=== PATIENT | female | born 1965 | race African-American/Black ===

== ENCOUNTER 2017-10-14 18:48 | Emergency (ER) | payer OTHER ==
[2017-10-14] MEDS ORDERED: SODIUM CHLORIDE 0.9% 1,000 ML IV STA (19:19)
[2017-10-14] MEDS ORDERED: ONDANSETRON 4 MG/2 ML VIAL IVP STA (19:19)
[2017-10-14] MEDS ORDERED: MORPHINE SULFATE 4MG/4ML SYRG IVP STA ×2 (19:20→21:49)
--- NOTE | 2017-10-14 19:26 | ED ---
Abdominal Pain HPI - General Chief Complaint: Abdominal Pain Stated Complaint: Kidney pain Time Seen by Provider: 10/14/17 19:03 Source: patient, RN notes reviewed Mode of arrival: ambulatory Limitations: no limitations - History of Present Illness Initial Comments: This is a 52-year-old female who presents to the emergency department with chief complaint of "kidney pain." Patient states that she had a computed tomography scan done by her primary care provider in August and was diagnosed with kidney stones. She states that she was told they were small enough to pass on their own. She states that she has been having left-sided flank pain for the past one week that has progressively worsened. She describes the pain as intermittent, sharp and shooting with radiation to the left side of her abdomen and left groin. She does state that she noticed some blood in her urine couple of days ago. Denies any dysuria. She states that she has a decrease in appetite, nausea and vomiting and diarrhea. She also admits to associated fevers and chills. - Related Data Home Medications Medication Instructions Recorded Confirmed Hydrochlorothiazide [Hydrodiuril] 12.5 mg PO DAILY 12/19/15 10/14/17 Calcium Carb-Vit D 500Mg-200Un 1 tab PO DAILY 10/14/17 10/14/17 [Oscal 500+D] EPINEPHrine [Epipen 2-Danilo] 0.3 mg IM ONCE PRN 10/14/17 10/14/17 Fluticasone Nasal [place] [Flonase 2 spr EA NOSTRIL DAILY 10/14/17 10/14/17 Nasal [place]] Gabapentin [Neurontin] 400 mg PO TID 10/14/17 10/14/17 Lidocaine 4% Cream [Lmx 4] 1 applic TOPICAL DAILY PRN 10/14/17 10/14/17 Metoprolol Tartrate [Lopressor] 25 mg PO BID 10/14/17 10/14/17 Multivitamins, Thera [Multivitamin 1 tab PO DAILY 10/14/17 10/14/17 (formulary)] Omeprazole [PriLOSEC] 20 mg PO AC-BID 10/14/17 10/14/17 Vitamin D3(Unknown) 1 tab PO DAILY 10/14/17 10/14/17 amLODIPine [Norvasc] 10 mg PO DAILY 10/14/17 10/14/17 Previous Rx's Medication Instructions Recorded HYDROcodone/APAP 5-325MG [[place] 5] 1 each PO Q6HR PRN #12 tab 10/14/17 Ondansetron Odt [Zofran Odt] 4 mg PO Q8HR PRN #10 tab 10/14/17 Tamsulosin [Flomax] 0.4 mg PO DAILY #14 cap 10/14/17 Allergies Allergy/AdvReac Type Severity Reaction Status Date / Time aspirin Allergy Rash/Hives Verified 10/14/17 19:45 fluoxetine Allergy Rash/Hives Verified 10/14/17 19:45 latex Allergy Rash/Hives Verified 10/14/17 19:45 lisinopril Allergy Unknown Verified 10/14/17 19:45 NSAIDS (Non-Steroidal Allergy Bariatric Verified 10/14/17 19:45 Anti-Inflamma Surgery Penicillins Allergy Rash/Hives Verified 10/14/17 19:45 Review of Systems ROS Statement: Those systems with pertinent positive or pertinent negative responses have been documented in the HPI. ROS Other: All systems not noted in ROS Statement are negative. Past Medical History Past Medical History: Hypertension History of Any Multi-Drug Resistant Organisms: None Reported Past Surgical History: Bariatric Surgery, Hernia Repair Additional Past Surgical History / Comment(s): Woody-En-Y Gastric Bypass; Uterine Ablation Past Psychological History: Anxiety Smoking Status: Never smoker Past Alcohol Use History: Occasional Past Drug Use History: None Reported General Exam - General Exam Comments Initial Comments: General: Awake and alert, well-developed. Patient appears to be in significant amount of pain. She appears sweaty and has labored breathing. HEENT: Head atraumatic, normocephalic. Pupils are equal, round and reactive to light. Extraocular movements intact. Oropharynx moist without erythema or exudate. Neck: Supple. Normal ROM. Cardiovascular: Regular rate and rhythm. No murmurs, rubs or gallops. Chest symmetrical. Respiratory: Lungs clear to auscultation bilaterally. No wheezes, rales or rhonchi. Normal respiratory effort with no use of accessory muscles. Abdomen: Soft, non-distended. Tenderness on palpation of left upper and left lower quadrants. Left-sided CVA tenderness. Musculoskeletal: Normal ROM, no tenderness bilateral upper and lower extremities. Skin: [place], warm and dry without rashes or lesions. Neurological: Alert and oriented x3. CN II-XII grossly intact. Speech is fluent and answers are appropriate. No focal neuro deficits. Psychiatric: Normal mood and affect. No overt signs of depression or anxiety noted. Limitations: no limitations Course Vital Signs 10/14/17 10/14/17 10/14/17 18:56 20:02 21:20 Temperature 99.0 F 98.3 F Pulse Rate 83 63 108 H Respiratory 28 H 16 16 Rate Blood Pressure 149/100 156/71 199/91 O2 Sat by Pulse 99 99 Oximetry Medical Decision Making - Medical Decision Making 52-year-old female presents to the emergency department with chief complaint of left flank pain with radiation to the left abdomen. Patient reports a history of kidney stones, recently diagnosed via computed tomography scan in August. CBC and CMP are unremarkable. UA revealed moderate blood and high red blood cells. KUB was obtained and revealed evidence for a left renal calculus. Patient continued to have left flank pain after given morphine. A computed tomography scan was obtained. Computed tomography scan revealed evidence for a 7 mm nonobstructing left renal calculus. Patient's vital signs are stable and she is in no acute distress. She will be discharged home with prescriptions for [place], Flomax and Zofran. Recommended follow-up with primary care provider. Patient is in agreement with plan and voices understanding. All questions were answered. - Lab Data Result diagrams: 10/14/17 19:25 10/14/17 19:25 Lab Results 10/14/17 10/14/17 10/14/17 Range/Units 19:25 19:25 21:39 WBC 4.8 (3.8-10.6) k/uL RBC 5.08 (3.80-5.40) m/uL Hgb 14.8 (11.4-16.0) gm/dL Hct 41.4 (34.0-46.0) % MCV 81.4 (80.0-100.0) fL MCH 29.1 (25.0-35.0) pg MCHC 35.8 (31.0-37.0) g/dL RDW 12.6 (11.5-15.5) % Plt Count 264 (150-450) k/uL Neutrophils % [employer] Neutrophils % (Manual) 25 % Lymphocytes % [employer] Lymphocytes % (Manual) 69 % Monocytes % [employer] Monocytes % (Manual) 4 % Eosinophils % [employer] Eosinophils % (Manual) 1 % Basophils % [employer] Metamyelocytes % 1 % Neutrophils # [employer] Neutrophils # (Manual) 1.20 L (1.3-7.7) k/uL Lymphocytes # [employer] Lymphocytes # (Manual) 3.31 (1.0-4.8) k/uL Monocytes # [employer] Monocytes # (Manual) 0.19 (0-1.0) k/uL Eosinophils # [employer] Eosinophils # (Manual) 0.05 (0-0.7) k/uL Basophils # [employer] Metamyelocytes # (Man) 0.05 H (0) k/uL Nucleated RBCs 0 (0-0) /100 WBC Polychromasia Present Sodium 138 (137-145) mmol/L Potassium 4.2 (3.5-5.1) mmol/L Chloride 104 (98-107) mmol/L Carbon Dioxide 18 L (22-30) mmol/L Anion Gap 16 mmol/L BUN 13 (7-17) mg/dL Creatinine 0.73 (0.52-1.04) mg/dL Est GFR (CKD-EPI)AfAm >90 (>60 ml/min/1.73 sqM) Est GFR (CKD-EPI)NonAf >90 (>60 ml/min/1.73 sqM) Glucose 122 H (74-99) mg/dL Calcium 9.3 (8.4-10.2) mg/dL Total Bilirubin 0.7 (0.2-1.3) mg/dL AST 64 H (14-36) U/L ALT 35 (9-52) U/L Alkaline Phosphatase 123 (38-126) U/L Total Protein 7.6 (6.3-8.2) g/dL Albumin 4.2 (3.5-5.0) g/dL Amylase 110 (30-110) U/L Lipase 104 (23-300) U/L Urine Color Yellow Urine Appearance Clear (Clear) Urine pH 6.5 (5.0-8.0) Ur Specific [place] 1.019 (1.001-1.035) Urine Protein Trace H (Negative) Urine Glucose (UA) Negative (Negative) Urine Ketones 1+ H (Negative) Urine Blood Moderate H (Negative) Urine Nitrite Negative (Negative) Urine Bilirubin Negative (Negative) Urine Urobilinogen 6.0 (<2.0) mg/dL Ur Leukocyte Esterase Negative (Negative) Urine RBC 162 H (0-5) /hpf Urine WBC 2 (0-5) /hpf Ur Squamous Epith Cells 2 (0-4) /hpf Urine Mucus Occasional H (None) /hpf - Radiology Data Radiology results: report reviewed X-ray KUB impression: Nonacute abdomen. Possible left renal calcification. CT abdomen and pelvis without contrast impression: Nonobstructing left renal calculus. Previous surgery. No sign of acute abdomen and pelvis. Mild fibrotic changes at the lung bases. No significant change compared to old exam. Disposition Clinical Impression: Renal calculus, left Disposition: HOME SELF-CARE Condition: Good Instructions: Kidney Stones (ED), How to Strain Your Urine (ED) Additional Instructions: Please take medications as prescribed. Please follow up with primary care provider within 1-2 days. Return to emergency department if symptoms should worsen or any concerns arise. Prescriptions: HYDROcodone/APAP 5-325MG [[place] 5] 1 each PO Q6HR PRN #12 tab PRN Reason: Pain Ondansetron Odt [Zofran Odt] 4 mg PO Q8HR PRN #10 tab PRN Reason: Nausea Tamsulosin [Flomax] 0.4 mg PO DAILY #14 cap Referrals: None,Stated [Primary Care Provider] - 1-2 days Sheldon Nugent MD [STAFF PHYSICIAN] - 1-2 days Time of Disposition: 23:19
[2017-10-14] MEDS ORDERED: METOCLOPRAMIDE 5 MG/ML 2 ML VIAL IVP STA (19:33)
[2017-10-14 19:43] LABS: HCT 41.4 % (34.0-46.0); HGB 14.8 gm/dL (11.4-16.0); MCH 29.1 pg (25.0-35.0); MCHC 35.8 g/dL (31.0-37.0); MCV 81.4 fL (80.0-100.0); Mean Platelet Volume 7.3; Platelet Count 264 k/uL (150-450); RBC 5.08 m/uL (3.80-5.40); RDW 12.6 % (11.5-15.5); WBC 4.8 k/uL (3.8-10.6)
[2017-10-14 19:49] LABS: ALT 35 U/L (9-52); AST 64 U/L (14-36); Albumin 4.2 g/dL (3.5-5.0); Alkaline Phosphatase 123 U/L (38-126); Amylase 110 U/L (30-110); Anion Gap 16 mmol/L; Blood Urea Nitrogen 13 mg/dL (7-17); Calcium 9.3 mg/dL (8.4-10.2); Carbon Dioxide 18 mmol/L (22-30); Chloride 104 mmol/L (98-107); Glucose 122 mg/dL (74-99); Lipase 104 U/L (23-300); Potassium 4.2 mmol/L (3.5-5.1); Sodium 138 mmol/L (137-145); Total Bilirubin 0.7 mg/dL (0.2-1.3); Total Protein 7.6 g/dL (6.3-8.2)
--- NOTE | 2017-10-14 20:12 | XR ---
EXAMINATION TYPE: XR KUB DATE OF EXAM: 10/14/2017 COMPARISON: NONE HISTORY: Pain TECHNIQUE: 3 views FINDINGS: There is no sign of intestinal obstruction or pneumoperitoneum fecal pattern is normal. The re is no evidence of a mass. There are surgical clips in the left mid abdomen. Lung bases are clear. I see no definite calcifications over the right kidney. There is possible 4 mm calcification over the left kidney. IMPRESSION: Nonacute abdomen. Possible left renal calcification.
[2017-10-14 20:42] LABS: Eosinophils # (M) 0.05 k/uL (0-0.7); Lymphocytes # (M) 3.31 k/uL (1.0-4.8); Metamyelocytes # (M) 0.05 k/uL (0); Metamyelocytes % 1 %; Monocytes # (M) 0.19 k/uL (0-1.0); Neutrophils % (M) 25 %; Nucleated Red Blood Cells 0 /100 WBC (0-0); Polychromasia Present; Total Cells Counted 100
[2017-10-14 20:57] VITALS: RESP 16
[2017-10-14 21:56] VITALS: TEMP 98.3
[2017-10-14 21:57] LABS: Appearance,Urine Clear (Clear); Bilirubin,Urine Negative (Negative); Blood,Urine Moderate (Negative); Color,Urine Yellow; Glucose,Urine (UA) Negative (Negative); Ketones,Urine 1+ (Negative); Leukocyte Esterase,Urine Negative (Negative); Mucus,Urine Occasional /hpf; Nitrite,Urine Negative (Negative); PH, Urine 6.5 (5.0-8.0); Protein,Urine Trace (Negative); RBC,Urine 162 /hpf (0-5); Specific Gravity,Urine 1.019 (1.001-1.035); Squamous Epithelial Cell,Urine 2 /hpf (0-4); WBC,Urine 2 /hpf (0-5)
--- NOTE | 2017-10-14 22:42 | CT ---
EXAMINATION TYPE: CT abdomen pelvis wo con DATE OF EXAM: 10/14/2017 COMPARISON: 12/19/2015 HISTORY: Left side flank pain CT DLP: 891.8 mGycm Automated exposure control for dose reduction was used. TECHNIQUE: Helical acquisition of images was performed from the lung bases through the pelvis. FINDINGS: There is some mild interstitial infiltrate at the lung bases. There is no pleural effusion. Heart is probably enlarged. There is no pericardial effusion. Liver shows no focal defect. There are multiple surgical clips apparently from bariatric surgery. Spl een is normal. There is no sign of a pancreatic mass. There are clips from cholecystectomy. Bile duct s are not dilated. There is no adrenal mass. There is a 7 mm calculus in the interpolar left kidney. There is no hydrone phrosis. Kidneys have normal size. Ureters are not dilated. There is no retroperitoneal adenopathy. T here is no ascites. Bladder distends smoothly. There is no sign of a pelvic mass. Uterus is anteverte d. I see no bony destructive process. Appendix appears normal. I see no intestinal wall thickening. There are no dilated loops. There is no sign of a bowel obstruct ion. IMPRESSION: NONOBSTRUCTING LEFT RENAL CALCULUS. PREVIOUS SURGERY. NO SIGN OF ACUTE ABDOMEN AND PELVIS. MILD FIBRO TIC CHANGES AT THE LUNG BASES. NO SIGNIFICANT CHANGE COMPARED TO OLD EXAM.
[2017-10-14] MEDS ORDERED: ONDANSETRON 4 MG ODT STARTER PACK 2 TAB BTL PO STA (23:17)
[2017-10-14 23:48] VITALS: BP 156/82; PULSE 76
== END 2017-10-14 23:38 | disposition home or self-care (01) ==
LOC: EC 18:48
DX: N20.0 Calculus of kidney (principal); I10 Essential (primary) hypertension; F41.9 Anxiety disorder, unspecified; Z98.84 Bariatric surgery status; Z98.890 Other specified postprocedural states; Z79.51 Long term (current) use of inhaled steroids; Z79.899 Other long term (current) drug therapy; Z88.0 Allergy status to penicillin; Z88.6 Allergy status to analgesic agent; Z88.8 Allergy status to other drugs, medicaments and biological substances; Z91.040 Latex allergy status
CPT/HCPCS: 36415; 80053; 82150; 83690; 85025; 81001; 87086; 74018; 74176; 99284; 96374; 96375; 96376; J2765; S0119; J2270

== ENCOUNTER → 2020-06-14 | Outpatient (CLI) | payer OTHER | END | disposition home or self-care (01) | LOC: LABWHC1 15:41 | PROVIDERS: ATTEND Family Medicine | DX: R05 Cough (principal) | CPT/HCPCS: U0003; C9803 ==

== ENCOUNTER → 2020-09-12 | Outpatient (CLI) | payer BC ==
[2020-09-12 15:20] VITALS: BP 159/106; PULSE 103; RESP 18; TEMP 98.6; BMI 32.8
--- NOTE | 2020-09-12 16:06 | P.HPBAR ---
Bariatric H&P - History & Physicial H&P Date: 09/12/20 History & Physicial: Visit/CC: initial visit Patient initial contact: Initial weight: Initial weight in pounds: Height: 5 ft 8 in Initial BMI: Last weight: Current weight: 97.931 kg Current weight in pounds: 215.90 Current BMI: 32.8 [place] body weight (based on NIH guidelines): 63.503 kg Excess body weight loss: The patient is a 55 year-old F who presents for Bariatric Assessment. DATE OF SERVICE: 09/12/2020 REASON FOR CONSULTATION: Bariatric management HISTORY OF PRESENT ILLNESS: Mala Duncan is a 55-year-old female who comes with lifelong morbid obesity. She is status post gastric bypass 2013 in [place] at [facility]. Her highest weight was 315 pounds. Her lowest weight was 170 pounds. She has gained most of her weight during the pandemic. She was comfortable at 180 pounds. She does not track her weight loss anymore. She reports eating less. She describes having a hiatal hernia, gastroesophageal reflux disease including kidney stones. She presents to me for the first time in consultation for her management of her gastric bypass and weight loss. She reports barely drinking water. At height of 5 feet 8 inches, her ideal body weight is 163 pounds. Her highest weight was 315 pounds, BMI 48.0. Her lowest weight was 170 pounds. She comes in 215 pounds and has gained 45 pounds in 1 year. Her body mass index is 32.8. She is 52 pounds overweight. PAST MEDICAL HISTORY: 1. Morbid obesity due to excess calories 2. Body mass index of 48.0, initial 3. Hypertensive heart disease. 4. Neuropathy 5. Gastroesophageal reflux disease 6. Generalized anxiety disorder 7. Hiatal hernia PAST SURGICAL HISTORY: 1. Gastric bypass, 2013 2. Cholecystectomy 3. Ventral hernia repair 4. Uterine Ablation HOME MEDICATIONS: Home Medications Medication Instructions Recorded Confirmed hydroCHLOROthiazide [Hydrodiuril] 12.5 mg PO DAILY 12/19/15 10/10/20 Calcium Carb-Vit D 500Mg-5Mcg 1 tab PO DAILY 10/14/17 10/10/20 [Oscal 500+D 5 Mcg (200 Iu)] EPINEPHrine [Epipen 2-Danilo] 0.3 mg IM ONCE PRN 10/14/17 10/10/20 Fluticasone Nasal [place] [Flonase 2 spr EA NOSTRIL DAILY 10/14/17 10/10/20 Nasal [place]] Gabapentin [Neurontin] 400 mg PO TID 10/14/17 10/10/20 Lidocaine 4% Cream [Lmx 4] 1 applic TOPICAL DAILY PRN 10/14/17 10/10/20 Metoprolol Tartrate [Lopressor] 25 mg PO BID 10/14/17 10/10/20 Multivitamins, Thera [Multivitamin 1 tab PO DAILY 10/14/17 10/10/20 (formulary)] Omeprazole [PriLOSEC] 20 mg PO AC-BID 10/14/17 10/10/20 Vitamin D3(Unknown) 1 tab PO DAILY 10/14/17 10/10/20 amLODIPine [Norvasc] 10 mg PO DAILY 10/14/17 10/10/20 Ergocalciferol [Vitamin D2 (1250 50,000 unit PO MO 09/18/20 10/10/20 Mcg = 10735 Iu)] Previous Rx's Medication Instructions Recorded HYDROcodone/APAP 5-325MG [[place] 1 each PO Q6HR PRN #12 tab 10/14/17 5-325] Ondansetron Odt [Zofran ODT] 4 mg PO Q8HR PRN #10 tab 10/14/17 Omeprazole [PriLOSEC] 40 mg PO DAILY #30 cap 10/11/20 ALLERGIES: Allergies Allergy/AdvReac Type Severity Reaction Status Date / Time aspirin Allergy Rash/Hives Verified 10/11/20 07:36 bee pollen Allergy Anaphylaxis Verified 10/11/20 07:36 fluoxetine Allergy Rash/Hives Verified 10/11/20 07:36 latex Allergy Rash/Hives Verified 10/11/20 07:36 lisinopril Allergy Unknown Verified 10/11/20 07:36 NSAIDS (Non-Steroidal Allergy Bariatric Verified 10/11/20 07:36 Anti-Inflamma Surgery Penicillins Allergy Rash/Hives Verified 10/11/20 07:36 SOCIAL HISTORY: Denies past tobacco use. FAMILY HISTORY: No family history of ulcerative colitis disease or Crohn's disease. Family history of morbid obesity. No lupus in the family. No reports of stomach or esophageal cancer. REVIEW OF ORGAN SYSTEMS: CONSTITUTIONAL: At height of 5 feet 8 inches, her ideal body weight is 163 pounds. Her highest weight was 315 pounds, BMI 48.0. Her lowest weight was 170 pounds. HEENT: Denies any active troubles with vision or hearing. Has troubles with swallowing. ENDOCRINE: Has resolved diabetes. No hypothyroidism. 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 Has hypertensive heart disease. RESPIRATORY: Has resolved daytime somnolence. GASTROINTESTINAL: Denies any bright red blood per rectum. No diarrhea. No constipation. Has gastroesophageal reflux disease. GENITOURINARY: Denies bladder urgency. No recent blood in urine MUSCULOSKELETAL: Has lower back pain and joint pain. Has osteoarthritis of the knees. NEURO: No headaches. No seizure disorders. Has neuropathy. PSYCH: Denies depression. No suicidal ideation. RHEUMATOLOGIC: No lupus. No rheumatoid arthritis. HEMATOLOGIC: Denies any abnormal bleeding or bruising. SKIN: No rash. No skin cancer. PHYSICAL EXAM: VITAL SIGNS: Height 5 foot 8 inches, weight 215 pounds. BMI 32.8 Vital Signs Temp 98.6 F 09/12/20 15:07 Pulse 103 H 09/12/20 15:07 Resp 18 09/12/20 15:07 BP 159/106 09/12/20 15:07 Pulse Ox GENERAL: Well-developed in no acute distress. Young in appearance. HEENT: No scleral icterus. Extraocular movements grossly intact. Hears conversational speech. No nasal drainage. NECK: Supple without lymphadenopathy. CHEST: Nonlabored respirations with equal bilateral excursions. CARDIOVASCULAR: Tachycardic. Distal 2+ pulses. ABDOMEN: Obese, soft, nontender, nondistended. MUSCULOSKELETAL: No clubbing, cyanosis. NEURO: No focal or lateralizing signs. Cranial nerves 2 through 12 grossly within normal limits. PSYCH: Appropriate affect. Alert and oriented to person, place and time. SKIN: Good skin turgor. Well perfused. ASSESSMENT: 1. Morbid obesity due to excess calories 2. Body mass index of 48.0, initial 3. Hypertensive heart disease. 4. Neuropathy 5. Gastroesophageal reflux disease 6. Generalized anxiety disorder 7. Hiatal hernia PLAN: 1. Recommend a bariatric metabolic panel to evaluate for micro- including macronutrient deficiencies. 2. Dietary surveillance and counseling was reviewed. Increased protein intake over 65 grams daily advised. 3. Recommend upper endoscopy for her hiatal hernia 4. Recommend 12-lead EKG for pre-exiting heart disease. 5. Recommend esophagram for history of hiatal hernia and gastroesophageal reflux disease. 6. She needs to drink water at least 64 oz daily. 7. Recommend cardiac risk assessment prior to robotic lysis of adhesions. 8. She is elevated risk for complications with prior gastric bypass, hiatal hernia, and multiple abdominal procedures. Thank you for this consultation. 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" History of Any Multi-Drug Resistant Organisms: None Reported Past Surgical History: Bariatric Surgery, Cholecystectomy, Hernia Repair, Uterine Ablation Additional Past Surgical History / Comment(s): Woody-En-Y Gastric Bypass; Uterine Ablation Past Anesthesia/Blood Transfusion Reactions: No Reported Reaction Past Psychological History: Anxiety Smoking Status: Never smoker Past Alcohol Use History: Occasional Past Drug Use History: None Reported Surgical - Exam Vital Signs Temp Pulse Resp BP 98.6 F 103 H 18 159/106 09/12/20 15:07 09/12/20 15:07 09/12/20 15:07 09/12/20 15:07 Bariatric Checklist Checklist: Plan: Checklist: EGD: 1. Hiatal hernia: 2. H. Pylori: HgbA1c: Vitamin D: Smoking: Never smoker Primary care physician referral: Dr. Nikki Mast Psychiatry clearance: Cardiology clearance: Sleep study: Diet journal: VTE risk score: VTE risk level: Rehab needs at discharge:
== END | disposition home or self-care (01) ==
LOC: BARWHC3 14:46
PROVIDERS: ATTEND Surgery Plastic and Reconstructive Surgery
DX: E66.01 Morbid (severe) obesity due to excess calories (principal); I11.9 Hypertensive heart disease without heart failure; G62.9 Polyneuropathy, unspecified; K21.9 Gastro-esophageal reflux disease without esophagitis; F41.9 Anxiety disorder, unspecified; K44.9 Diaphragmatic hernia without obstruction or gangrene; Z68.32 Body mass index [BMI] 32.0-32.9, adult; Z79.899 Other long term (current) drug therapy
CPT/HCPCS: 99211

== ENCOUNTER → 2020-09-13 | Outpatient (CLI) | payer BC ==
[2020-09-13 15:22] LABS: HCT 42.7 % (37.2-46.3); HGB 13.7 g/dL (12.0-15.0); MCH 28.6 pg (27.0-32.0); MCHC 32.1 g/dL (32.0-37.0); MCV 89.1 fL (80.0-97.0); Mean Platelet Volume 10.2 fL (9.5-12.2); Platelet Count 321 X 10*3/uL (140-440); RBC 4.79 X 10*6/uL (4.10-5.20); RDW 12.8 % (11.5-14.5); WBC 6.21 X 10*3/uL (4.50-10.00)
[2020-09-13 19:22] LABS: Hemoglobin A1C 5.7 % (4.0-6.0)
[2020-09-14 00:41] LABS: INR 0.94 (0.90-1.11); Partial Thromboplastin Time 27.3 sec (23.5-31.0); Prothrombin Time 10.3 sec (9.9-11.9)
[2020-09-14 03:46] LABS: % Iron Saturation 36.82 (12.00-45.00); African American GFR (CKD) 96.2 (60.0-200.0); Albumin 4.6 g/dL (3.80-4.90); Albumin/Globulin Ratio 1.7 (1.60-3.17); Anion Gap 15.2 mmol/L (4.00-12.00); BUN/Creat Ratio 21.25 Ratio (12.00-20.00); Calcium 9.9 mg/dL (8.7-10.3); Carbon Dioxide 26.8 mmol/L (21.6-31.8); Chol/HDL Ratio 3.04; Globulin 2.7 g/dL (1.6-3.3); LDL Cholesterol,Calculated 124.6 mg/dL (0.0-131.0); Phosphorus 3.7 mg/dL (2.4-5.1); Potassium 3.5 mmol/L (3.5-5.5); Total Bilirubin 0.6 mg/dL (0.3-1.2); Total Protein 7.3 g/dL (6.2-8.2); VLDL Calculation 24.4 mg/dL (5.00-40.00)
[2020-09-14 03:54] LABS: Ferritin 66.2 ng/mL (10.0-291.0)
[2020-09-14 04:06] LABS: Folate, Serum 11.3 ng/mL
[2020-09-14 15:50] LABS: Zinc, Serum 62 ug/dL (60-130)
[2020-09-17 08:32] LABS: Vitamin A 75 ug/dL (38-106)
[2020-09-17 11:06] LABS: Vit B1(Thiamine) 52 ug/L (38-122)
[2020-09-17 17:42] LABS: Selenium 139 mcg/L (63-160)
== END | disposition home or self-care (01) ==
LOC: LABWHC1 09:57
PROVIDERS: ATTEND Surgery Plastic and Reconstructive Surgery
DX: E89.1 Postprocedural hypoinsulinemia (principal); D50.8 Other iron deficiency anemias; E44.0 Moderate protein-calorie malnutrition; E55.9 Vitamin D deficiency, unspecified; K74.1 Hepatic sclerosis; N19 Unspecified kidney failure; K50.90 Crohn's disease, unspecified, without complications; I49.3 Ventricular premature depolarization; R94.31 Abnormal electrocardiogram [ECG] [EKG]
CPT/HCPCS: 36415; 80053; 80061; 82306; 82525; 82607; 82728; 82746; 83036; 83540; 83550; 83735; 83970; 84100; 84134; 84255; 84425; 84443; 84590; 84630; 85027; 85610; 85730; 93005

== ENCOUNTER 2020-10-11 07:14 | Day surgery (SDC) | payer BC ==
[2020-10-10 12:00] VITALS: BMI 31.9
[~2020-10-11 07:14] MED LIST: LACTATED RINGERS 1,000 ML IV SCH
[2020-10-11 07:50] VITALS: RESP 16; TEMP 97.9
[2020-10-11] MEDS ORDERED: LIDOCAINE 1% (10MG/ML) FOR IV START INTRADERMA ONE (07:50)
[2020-10-11] MEDS ORDERED: GLYCOPYRROLATE 0.2 MG/ML 2 ML VIAL ONE (08:02)
[2020-10-11] MEDS ORDERED: PROPOFOL 10 MG/ML 20 ML VIAL IV ONE (08:02)
[2020-10-11] MEDS ORDERED: LIDOCAINE 1% INJ 10MG/ML (20 ML MDV) ONE (08:02)
--- NOTE | 2020-10-11 08:04 | P.GSHP ---
History of Present Illness H&P Date: 10/11/20 CHIEF COMPLAINT: GERD HISTORY OF PRESENT ILLNESS: The patient is a 55-year-old female who presents reports gastroesophageal reflux disease. Upper endoscopy was offered for further evaluation and management. PAST MEDICAL HISTORY: Please see list. PAST SURGICAL HISTORY: Please see list. MEDICATIONS: Please see list. ALLERGIES: Please see list. SOCIAL HISTORY: No illicit drug use FAMILY HISTORY: No reports of Crohn disease or ulcerative colitis. REVIEW OF ORGAN SYSTEMS: CONSTITUTIONAL: No reports of fevers or chills. GI: Denies any blood in stools or constipation. PHYSICAL EXAM: VITAL SIGNS: Stable GENERAL: Well-developed and pleasant in no acute distress. HEENT: No scleral icterus. Extraocular movements grossly intact. Moist buccal mucosa. NECK: Supple without lymphadenopathy. CHEST: Unlabored respirations. Equal bilateral excursions. CARDIOVASCULAR: Regular rate and rhythm. Distal 2+ pulses. ABDOMEN: Soft, nondistended. MUSCULOSKELETAL: No clubbing, cyanosis, or edema. ASSESSMENT: 1. Gastroesophageal reflux disease PLAN: 1. 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", MIGRAINES, History of Any Multi-Drug Resistant Organisms: None Reported Past Surgical History: Bariatric Surgery, Cholecystectomy, Hernia Repair, Uterine Ablation Additional Past Surgical History / Comment(s): Woody-En-Y Gastric Bypass; Uterine Ablation, EGD, COLONOSCOPY Past Anesthesia/Blood Transfusion Reactions: No Reported Reaction Smoking Status: Never smoker - Past Family History Mother History Unknown: Yes Additional Family Medical History / Comment(s): PT ADOPTED-FAMILY HX UNKNOWN Medications and Allergies Home Medications Medication Instructions Recorded Confirmed Type hydroCHLOROthiazide [Hydrodiuril] 12.5 mg PO DAILY 12/19/15 10/10/20 History Calcium Carb-Vit D 500Mg-5Mcg 1 tab PO DAILY 10/14/17 10/10/20 History [Oscal 500+D] EPINEPHrine [Epipen 2-Danilo] 0.3 mg IM ONCE PRN 10/14/17 10/10/20 History Fluticasone Nasal [place] [Flonase 2 spr EA NOSTRIL DAILY 10/14/17 10/10/20 History Nasal [place]] Gabapentin [Neurontin] 400 mg PO TID 10/14/17 10/10/20 History HYDROcodone/APAP 5-325MG [[place] 5] 1 each PO Q6HR PRN #12 tab 10/14/17 10/10/20 Rx Lidocaine 4% Cream [Lmx 4] 1 applic TOPICAL DAILY PRN 10/14/17 10/10/20 History Metoprolol Tartrate [Lopressor] 25 mg PO BID 10/14/17 10/10/20 History Multivitamins, Thera [Multivitamin 1 tab PO DAILY 10/14/17 10/10/20 History (formulary)] Omeprazole [PriLOSEC] 20 mg PO AC-BID 10/14/17 10/10/20 History Ondansetron Odt [Zofran Odt] 4 mg PO Q8HR PRN #10 tab 10/14/17 10/10/20 Rx Vitamin D3(Unknown) 1 tab PO DAILY 10/14/17 10/10/20 History amLODIPine [Norvasc] 10 mg PO DAILY 10/14/17 10/10/20 History Ergocalciferol [Vitamin D2 (1250 50,000 unit PO MO 09/18/20 10/10/20 History Mcg = 32712 Iu)] Allergies Allergy/AdvReac Type Severity Reaction Status Date / Time aspirin Allergy Rash/Hives Verified 10/11/20 07:36 bee pollen Allergy Anaphylaxis Verified 10/11/20 07:36 fluoxetine Allergy Rash/Hives Verified 10/11/20 07:36 latex Allergy Rash/Hives Verified 10/11/20 07:36 lisinopril Allergy Unknown Verified 10/11/20 07:36 NSAIDS (Non-Steroidal Allergy Bariatric Verified 10/11/20 07:36 Anti-Inflamma Surgery Penicillins Allergy Rash/Hives Verified 10/11/20 07:36 Surgical - Exam Vital Signs Temp Pulse Resp BP Pulse Ox 97.9 F 92 16 159/99 100 10/11/20 07:49 10/11/20 07:49 10/11/20 07:49 10/11/20 07:49 10/11/20 07:49
--- NOTE | 2020-10-11 08:26 | P.PCN ---
Date of Procedure: 10/11/20 Description of Procedure: PREOPERATIVE DIAGNOSIS: Gastroesophageal reflux disease Diaphragmatic hiatal hernia POSTOPERATIVE DIAGNOSIS: Gastroesophageal reflux disease Diaphragmatic hiatal hernia Foreign body of stomach/anastomosis Gastrojejunal stricture with chronic ulcer without perforation OPERATION: Esophagogastrojejunoscopy with balloon dilatation, 20 mm. Esophagogastrojejunoscopy with removal of foreign body SURGEON: Aditi Cummings MD ANESTHESIA: MAC. INDICATIONS: The patient is a 55-year-old female who presents with a history of reflux disease including hiatal hernia with occasional dysphagia. Benefits and risks of the procedure were described. Informed consent was obtained. DESCRIPTION: The patient was brought into the endoscopy suite and laid in the left lateral decubitus position. After a timeout was confirmed, the procedure was initiated. An Olympus gastroscope was passed along the posterior oropharynx down to the distal esophagus where the squamocolumnar junction was unremarkable. The gastric pouch was entered. A gastrojejunal stricture of 18 mm was found as the adult gastroscope was 9.5 mm in size. A Complete Solar balloon dilator was placed through the scope. Final insufflation up to 20 mm was performed with a total of 2 minutes. The scope was advanced up to 60 cm from the incisors into the Woody limb. The mucosa of the gastrojejunal anastomosis was intact. However chronic gastrojejunal marginal ulcer was encountered. Additionally, along the gastric anastomosis foreign body staple was found and removed using cold forceps biopsy. No full-thickness injury was encountered. The GI tract was desufflated. The patient tolerated the procedure well. FINDINGS: Squamocolumnar junction unremarkable at 37 cm from the incisors Diaphragmatic hiatus at 39 cm from the incisors Stricture of approximately 18 mm encountered. Chronic gastrojejunal ulceration encountered, less than 4 mm in size Retained foreign body and gastric anastomosis removed using cold forceps Successful balloon dilatation to 20 mm. Diaphragmatic hiatal hernia, 2 cm RECOMMENDATIONS: Start omeprazole of at least 4 weeks. Plan - Discharge Summary Discharge Rx Participant: No New Discharge Prescriptions: Continue hydroCHLOROthiazide [Hydrodiuril] 12.5 mg PO DAILY amLODIPine [Norvasc] 10 mg PO DAILY Lidocaine 4% Cream [Lmx 4] 1 applic TOPICAL DAILY PRN PRN Reason: Pain Metoprolol Tartrate [Lopressor] 25 mg PO BID Gabapentin [Neurontin] 400 mg PO TID Omeprazole [PriLOSEC] 20 mg PO AC-BID Multivitamins, Thera [Multivitamin (formulary)] 1 tab PO DAILY Fluticasone Nasal [place] [Flonase Nasal [place]] 2 spr EA NOSTRIL DAILY EPINEPHrine [Epipen 2-Danilo] 0.3 mg IM ONCE PRN PRN Reason: Anaphylaxis Calcium Carb-Vit D 500Mg-5Mcg [Oscal 500+D 5 Mcg (200 Iu)] 1 tab PO DAILY Vitamin D3(Unknown) 1 tab PO DAILY HYDROcodone/APAP 5-325MG [[place] 5-325] 1 each PO Q6HR PRN #12 tab PRN Reason: Pain Ondansetron Odt [Zofran ODT] 4 mg PO Q8HR PRN #10 tab PRN Reason: Nausea Ergocalciferol [Vitamin D2 (1250 Mcg = 60719 Iu)] 50,000 unit PO MO Discharge Medication List hydroCHLOROthiazide [Hydrodiuril] 12.5 mg PO DAILY 12/19/15 [History] Calcium Carb-Vit D 500Mg-5Mcg [Oscal 500+D 5 Mcg (200 Iu)] 1 tab PO DAILY 10/14/17 [History] EPINEPHrine [Epipen 2-Danilo] 0.3 mg IM ONCE PRN 10/14/17 [History] Fluticasone Nasal [place] [Flonase Nasal [place]] 2 spr EA NOSTRIL DAILY 10/14/17 [History] Gabapentin [Neurontin] 400 mg PO TID 10/14/17 [History] HYDROcodone/APAP 5-325MG [[place] 5-325] 1 each PO Q6HR PRN #12 tab 10/14/17 [Rx] Lidocaine 4% Cream [Lmx 4] 1 applic TOPICAL DAILY PRN 10/14/17 [History] Metoprolol Tartrate [Lopressor] 25 mg PO BID 10/14/17 [History] Multivitamins, Thera [Multivitamin (formulary)] 1 tab PO DAILY 10/14/17 [Histor y] Omeprazole [PriLOSEC] 20 mg PO AC-BID 10/14/17 [History] Ondansetron Odt [Zofran ODT] 4 mg PO Q8HR PRN #10 tab 10/14/17 [Rx] Vitamin D3(Unknown) 1 tab PO DAILY 10/14/17 [History] amLODIPine [Norvasc] 10 mg PO DAILY 10/14/17 [History] Ergocalciferol [Vitamin D2 (1250 Mcg = 11207 Iu)] 50,000 unit PO MO 09/18/20 [History] Follow up Appointment(s)/Referral(s): [facility] [NON-STAFF] - 10/17/20 Patient Instructions/Handouts: Esophageal Dilation (GEN), *[facility] - (Anesthesia) Endoscopy Discharge Instructions Activity/Diet/Wound Care/Special Instructions: Diet as tolerated Discharge Disposition: HOME SELF-CARE
[2020-10-11 08:56] VITALS: BP 144/88; PULSE 94
== END 2020-10-11 09:11 | disposition home or self-care (01) ==
LOC: ORWHC2ENDO 07:14
PROVIDERS: ATTEND Surgery Plastic and Reconstructive Surgery
DX: K95.89 Other complications of other bariatric procedure (principal); M79.5 Residual foreign body in soft tissue; K21.9 Gastro-esophageal reflux disease without esophagitis; K44.9 Diaphragmatic hernia without obstruction or gangrene; I10 Essential (primary) hypertension; G43.909 Migraine, unspecified, not intractable, without status migrainosus; Z90.49 Acquired absence of other specified parts of digestive tract; Z98.890 Other specified postprocedural states; Z79.899 Other long term (current) drug therapy; Z88.0 Allergy status to penicillin; Z88.8 Allergy status to other drugs, medicaments and biological substances; Z88.6 Allergy status to analgesic agent; Z91.030 Bee allergy status; Z91.040 Latex allergy status
CPT/HCPCS: 43247; 43249; J2001; J2704; C1726

== ENCOUNTER → 2020-12-31 | Outpatient (CLI) | payer BC ==
--- NOTE | 2020-12-31 17:11 | XR ---
EXAMINATION TYPE: XR knee complete LT DATE OF EXAM: 12/31/2020 CLINICAL HISTORY: Pain and swelling. No recent injury TECHNIQUE: Three views of the left knee are obtained. COMPARISON: None. FINDINGS: There is no acute fracture/dislocation evident in left knee. There is moderate medial comp artment joint space narrowing and spurring of the medial tibial plateau, and tibial spines. Tiny post erior patellar spurs. Soft tissue calcifications are seen anterior to the tibia. IMPRESSION: No evidence of fracture or dislocation of the left knee. There is moderate osteoarthritis of left kne e.
== END | disposition home or self-care (01) ==
LOC: RADXRMAIN 13:56
PROVIDERS: ATTEND Nurse Practitioner Family
DX: M17.12 Unilateral primary osteoarthritis, left knee (principal)

== ENCOUNTER → 2021-07-18 | Outpatient (CLI) | payer BC ==
[2021-07-18 13:08] LABS: ALT 20 U/L (4-34); AST 32 U/L (14-36); African American GFR (CKD) >90 (>60 ml/min/1.73 sqM); Alkaline Phosphatase 99 U/L (38-126); Anion Gap 8 mmol/L; Blood Urea Nitrogen 13 mg/dL (7-17); Calcium 9.3 mg/dL (8.4-10.2); Carbon Dioxide 24 mmol/L (22-30); Chloride 106 mmol/L (98-107); Glucose 109 mg/dL (74-99); Non-African American GFR(CKD) >90 (>60 ml/min/1.73 sqM); Potassium 3.9 mmol/L (3.5-5.1); Sodium 138 mmol/L (137-145); Total Bilirubin 0.9 mg/dL (0.2-1.3); Total Protein 7.4 g/dL (6.3-8.2)
[2021-07-18 13:21] LABS: Basophils % (A) 1 %; Eosinophils # (A) 0.2 k/uL (0-0.7); Eosinophils % (A) 5 %; HCT 44.7 % (34.0-46.0); HGB 13.9 gm/dL (11.4-16.0); Hypochromasia Slight; Lymphocytes # (A) 2.5 k/uL (1.0-4.8); Lymphocytes % (A) 53 %; MCH 29.9 pg (25.0-35.0); MCHC 31.1 g/dL (31.0-37.0); MCV 96.2 fL (80.0-100.0); Mean Platelet Volume 7.4; Monocytes # (A) 0.3 k/uL (0-1.0); Monocytes % (A) 7 %; Neutrophils # (A) 1.6 k/uL (1.3-7.7); Neutrophils % (A) 33 %; Platelet Count 253 k/uL (150-450); RBC 4.65 m/uL (3.80-5.40); RDW 12.6 % (11.5-15.5); WBC 4.8 k/uL (3.8-10.6)
== END | disposition home or self-care (01) ==
LOC: LABPAT 11:33
PROVIDERS: ATTEND Surgery Plastic and Reconstructive Surgery
DX: Z01.812 Encounter for preprocedural laboratory examination (principal); U07.1 COVID-19
CPT/HCPCS: 80053; 85025; 36415; U0003; C9803

== ENCOUNTER → 2021-09-06 | Outpatient (CLI) | payer BC ==
[~2021-09-06] MED LIST changes: +HEPARIN SODIUM,PORCINE/PF 5,000 UNIT/0.5 ML SYRINGE SQ PRN; -LACTATED RINGERS 1,000 ML IV SCH
[2021-09-06 18:52] LABS: Basophils # (A) 0.06 X 10*3/uL (0.00-0.10); Eosinophils # (A) 0.25 X 10*3/uL (0.04-0.35); Eosinophils % (A) 4.1 %; HCT 40.9 % (37.2-46.3); HGB 12.8 g/dL (12.0-15.0); Immature Grans, Automated 0.3 %; Lymphocytes # (A) 3.07 X 10*3/uL (0.90-5.00); Lymphocytes % (A) 50.2 %; MCH 28.3 pg (27.0-32.0); MCHC 31.3 g/dL (32.0-37.0); MCV 90.3 fL (80.0-97.0); Mean Platelet Volume 9.7 fL (9.5-12.2); Monocytes # (A) 0.39 X 10*3/uL (0.20-1.00); Monocytes % (A) 6.4 %; NRBC Per 100 WBC 0 /100 WBCS (0.0-0.0); Neutrophils # (A) 2.32 X 10*3/uL (1.80-7.70); Platelet Count 355 X 10*3/uL (140-440); RBC 4.53 X 10*6/uL (4.10-5.20); RDW 12.4 % (11.5-14.5); WBC 6.11 X 10*3/uL (4.50-10.00)
[2021-09-06 23:06] LABS: African American GFR (CKD) 116.3 (60.0-200.0); Albumin 4.5 g/dL (3.8-4.9); Albumin/Globulin Ratio 1.45 (1.60-3.17); Anion Gap 13.5 mmol/L (10.00-18.00); BUN/Creat Ratio 15.43 Ratio (12.00-20.00); Blood Urea Nitrogen 9.7 mg/dL (9.0-27.0); Calcium 9.4 mg/dL (8.7-10.3); Carbon Dioxide 22.2 mmol/L (20.0-27.5); Globulin 3.1 g/dL (1.6-3.3); Non-African American GFR(CKD) 100.4 (60.0-200.0); Potassium 3.8 mmol/L (3.5-5.5); Total Bilirubin 0.4 mg/dL (0.30-1.20); Total Protein 7.6 g/dL (6.2-8.2)
== END | disposition home or self-care (01) ==
LOC: LABPAT 12:53
PROVIDERS: ATTEND Surgery Plastic and Reconstructive Surgery
DX: Z01.812 Encounter for preprocedural laboratory examination (principal)
CPT/HCPCS: 80053; 85025

== ENCOUNTER 2021-09-09 08:43 | Day surgery (SDC) | payer BC ==
[2021-09-06 12:19] VITALS: BMI 28.9
--- NOTE | 2021-09-09 08:01 | P.GSHP ---
History of Present Illness H&P Date: 09/09/21 CHIEF COMPLAINT: History of intra-abdominal adhesions HISTORY OF PRESENT ILLNESS: The patient is a 56-year-old female who presents with history of intra-abdominal adhesions from multiple prior surgeries including increasing abdominal pain. She now presents for diagnostic laparoscopy including lysis of adhesions. PAST MEDICAL HISTORY: Please see list. PAST SURGICAL HISTORY: Please see list. MEDICATIONS: Please see list. ALLERGIES: Please see list. SOCIAL HISTORY: No illicit drug use FAMILY HISTORY: No reports of Crohn disease or ulcerative colitis. REVIEW OF ORGAN SYSTEMS: CONSTITUTIONAL: No reports of fevers or chills. GI: Denies any blood in stools or constipation. PHYSICAL EXAM: VITAL SIGNS: Stable GENERAL: Well-developed pleasant and in no acute distress. HEENT: No scleral icterus. Extraocular movements grossly intact. Moist buccal mucosa. NECK: Supple without lymphadenopathy. CHEST: Unlabored respirations. Equal bilateral excursions. CARDIOVASCULAR: Regular rate and rhythm. Distal 2+ pulses. ABDOMEN: Soft, diffuse abdominal tenderness. No peritonitis. MUSCULOSKELETAL: No clubbing, cyanosis, or edema. ASSESSMENT: 1. Diffuse abdominal pain. 2. History of multiple abdominal surgeries. 3. Intra-abdominal adhesions. PLAN: 1. Robotic lysis of adhesions were described in detail including risk of injury to the intestine, need for further surgery, and open technique. 2. DVT prophylaxis. 3. Antibiotic prophylaxis. 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", MIGRAINES, History of Any Multi-Drug Resistant Organisms: None Reported Past Surgical History: Bariatric Surgery, Cholecystectomy, Hernia Repair, Uterine Ablation Additional Past Surgical History / Comment(s): Woody-En-Y Gastric Bypass; Uterine Ablation, EGD, COLONOSCOPY Past Anesthesia/Blood Transfusion Reactions: No Reported Reaction Smoking Status: Never smoker - Past Family History Mother History Unknown: Yes Additional Family Medical History / Comment(s): PT ADOPTED-FAMILY HX UNKNOWN Medications and Allergies Home Medications Medication Instructions Recorded Confirmed Type EPINEPHrine [Epipen 2-Danilo] 0.3 mg IM ONCE PRN 10/14/17 09/06/21 History Fluticasone Nasal [place] [Flonase 2 spr EA NOSTRIL DAILY 10/14/17 09/06/21 History Nasal [place]] Gabapentin [Neurontin] 400 mg PO TID 10/14/17 09/06/21 History Lidocaine 4% Cream [Lmx 4] 1 applic TOPICAL DAILY PRN 10/14/17 09/06/21 History Multivitamins, Thera [Multivitamin 1 tab PO DAILY 10/14/17 09/06/21 History (formulary)] Ondansetron Odt [Zofran ODT] 4 mg PO Q8HR PRN #10 tab 10/14/17 09/06/21 Rx amLODIPine [Norvasc] 10 mg PO DAILY 10/14/17 09/06/21 History Omeprazole [PriLOSEC] 40 mg PO DAILY #90 cap 01/16/21 09/06/21 Rx Ergocalciferol [Vitamin D2 (1250 1,250 mcg PO MO 07/19/21 09/06/21 History Mcg = 89270 Iu)] Losartan/Hydrochlorothiazide 1 tab PO DAILY 07/19/21 09/06/21 History [Losartan-Hctz 100-12.5 mg Tab] Metoprolol Tartrate [Lopressor] 50 mg PO BID 07/19/21 09/06/21 History Nortriptyline [Pamelor] 25 mg PO HS 07/19/21 09/06/21 History Sertraline [Zoloft] 25 mg PO DAILY 07/19/21 09/06/21 History Tramadol(Dose Unknown) 1 tab PO DIRECTED PRN 07/19/21 09/06/21 History Allergies Allergy/AdvReac Type Severity Reaction Status Date / Time aspirin Allergy Rash/Hives Verified 09/06/21 11:41 bee pollen Allergy Anaphylaxis Verified 09/06/21 11:41 fluoxetine Allergy Rash/Hives Verified 09/06/21 11:41 latex Allergy Rash/Hives Verified 09/06/21 11:41 lisinopril Allergy Unknown Verified 09/06/21 11:41 NSAIDS (Non-Steroidal Allergy Bariatric Verified 09/06/21 11:41 Anti-Inflamma Surgery Penicillins Allergy Rash/Hives Verified 09/06/21 11:41
[~2021-09-09 08:43] MED LIST changes: -HEPARIN SODIUM,PORCINE/PF 5,000 UNIT/0.5 ML SYRINGE SQ PRN; +Pre Op ABX Message 1 EACH MISC MISCELLANE ONE
[2021-09-09] MEDS ORDERED: SCOPOLAMINE 1.5MG/72HR PATCH TRANSDERM PRN (09:09)
[2021-09-09] MEDS ORDERED: fentaNYL (PF) 50 MCG/ML 2 ML AMP IV PRN (09:09)
[2021-09-09] MEDS ORDERED: DEXAMETHASONE SOD PHOSPHATE 4 MG/ML 1 ML VIAL IV ONE (09:09)
[2021-09-09] MEDS ORDERED: ONDANSETRON 4 MG/2 ML VIAL IVP ONE (09:09)
[2021-09-09] MEDS ORDERED: HEPARIN SODIUM,PORCINE/PF 5,000 UNIT/0.5 ML SYRINGE SQ PRN (09:09)
[2021-09-09] MEDS ORDERED: LACTATED RINGERS 1,000 ML IV SCH (09:09)
[2021-09-09] MEDS ORDERED: ACETAMINOPHEN TAB 500 MG TAB PO PRN (09:09)
[2021-09-09] MEDS ORDERED: GABAPENTIN 300 MG CAP PO PRN (09:09)
[2021-09-09] MEDS ORDERED: MIDAZOLAM 2 MG/2 ML VIAL IV ONE (10:13)
[2021-09-09] MEDS ORDERED: LIDOCAINE 1% INJ 10MG/ML (20 ML MDV) ONE (12:19)
[2021-09-09] MEDS ORDERED: PROPOFOL 10 MG/ML 20 ML VIAL IV ONE (12:19)
[2021-09-09] MEDS ORDERED: ROCURONIUM 10 MG/ML (5 ML VIAL) IV ONE (12:19)
[2021-09-09] MEDS ORDERED: ePHEDrine 50 MG/ML 1 ML VIAL ONE (12:19)
[2021-09-09] MEDS ORDERED: SUCCINYLCHOLINE CHLORIDE 100 MG/5 ML SYR IV ONE (12:19)
[2021-09-09] MEDS ORDERED: ROPIVACAINE 5 MG/ML 30 ML VIAL ONE (12:19)
[2021-09-09] MEDS ORDERED: fentaNYL (PF) 50 MCG/ML 2 ML AMP ONE (12:19)
[2021-09-09] MEDS ORDERED: GLYCOPYRROLATE 0.2 MG/ML 2 ML VIAL ONE (12:19)
[2021-09-09] MEDS ORDERED: NEOSTIGMINE 1 MG/ML 10 ML VIAL ONE (12:19)
[2021-09-09] MEDS ORDERED: BUPIVACAIN-EPI 0.25%-1:200,000 30 ML VIAL SQ ONE (13:06)
--- NOTE | 2021-09-09 13:20 | P.ANPRN ---
Procedure Note - Anesthesia - Nerve Block Performed Bilateral Erector Spinae Single Time Out Performed: Yes (1012) Date of Procedure: 09/09/21 Procedure Start Time: 10:12 Procedure Stop Time: 10:18 Location of Patient: PreOp Indication: Acute Post-Operative Pain, Dx/Pain Location (abdominal pain), Requested by Surgeon Specifically requested for management of pain by DrRox: Aditi Cummings Sedation Type: Sedate with meaningful contact maintained Preparation: Sterile Prep Position: Prone Needle Types: Pajunk Needle Gauge: 21 Ultrasound used to visualize needle placement: Yes Ultrasound used to observe medication spread: Yes Injectate: 0.5% Ropivacaine (see comment for volume) (20 + 20 cc on each side) Blood Aspirated: Yes Pain Paresthesia on Injection Noted: Yes Resistance on Injection: Normal Image Stored and Saved: Yes Events: Uneventful and Well Tolerated
[2021-09-09] MEDS ORDERED: LACTATED RINGERS 1,000 ML IV ONE ×2 (13:53)
[2021-09-09 14:03] VITALS: TEMP 98.5
[2021-09-09 14:08] VITALS: RESP 16
[2021-09-09] MEDS ORDERED: traMADol 50 MG TAB ONE (15:21)
[2021-09-09 15:47] VITALS: BP 133/79; PULSE 86
--- NOTE | 2021-09-09 16:36 | P.OP ---
Date of Procedure: 09/09/21 Description of Procedure: SURGEON: BRE HUTCHINS MD PREOPERATIVE DIAGNOSES: 1. Left upper quadrant abdominal pain 2. Epigastric abdominal pain 3. History of gastric bypass 4. History of multiple abdominal surgeries 5. Hypertensive heart disease 6. Gastroesophageal reflux disease 7. Migraine 8. Generalized anxiety disorder POSTOPERATIVE DIAGNOSES: 1. Left upper quadrant abdominal pain 2. Epigastric abdominal pain 3. History of gastric bypass 4. History of multiple abdominal surgeries 5. Hypertensive heart disease 6. Gastroesophageal reflux disease 7. Migraine 8. Generalized anxiety disorder OPERATION: 1. Robotic-assisted da Shanda Xi laparoscopic lysis of adhesions over 30 minutes ESTIMATED BLOOD LOSS: 5 mL. SPECIMENS REMOVED: None. COMPLICATIONS: None. OPERATIVE FINDINGS: 1. No ventral hernias identified. 2. Adhesions along the epigastrium, left upper quarant, left lower quadrant 3. Normal terminal ileum and cecum unremarkable. 4. Complete scarring of Meng defect and jejunojejunostomy mesenteric defect INDICATIONS: The patient is a 56-year-old female who presents with epigastric abdominal pain including left upper quadrant abdominal pain. Surgical intervention with diagnostic laparoscopy, lysis of adhesions were described. Informed consent was obtained. Robotic assisted laparoscopic approach was described. Benefits and risks of the procedure including but not limited to bleeding, infection, injury to the small bowel was described. Informed consent was obtained. DESCRIPTION OF PROCEDURE: Patient was brought to the operating room, placed in supine position. After general induction, the abdomen had been prepped and draped in standard sterile fashion. The robotic da Shanda XI system was primed. After a timeout protocol was performed, the patient had been prepped and draped in standard sterile fashion. The robot was docked along the right lateral abdomen. The patient was repositioned in with right side up. Please note prior to docking of the robot; however, a 5 mm 0 degrees laparoscopic trocar entry was performed along the left upper quadrant. The abdomen was insufflated to 15 mmHg pressure which she tolerated well. Diagnostic laparoscopy was performed. Next, three 8 mm robotic ports were placed along the right lateral abdominal wall. The camera 8-mm port was maintained along mid-lateral abdomen. Please note that the ports were placed at least 10 to 15 cm away from the target anatomy. Instruments including graspers and vessel sealer were interchanged by the assistant production editor. I had sat at the console. No incisional hernia was identified. The rest of the abdomen was unremarkable for small bowel pathology. The small bowel from the paulette limb to distal ileum was inspected. The small bowel was investigated from the terminal ileum to the ligament of Treitz. Omental to abdominal adhesions were identified of the left upper quadrant including left lower quadrant and divided using vessel sealer. The jejunojejunostomy was tethered to the abdominal wall at the left upper quadrant along the adhesion which was released using vessel sealer. Pedis and mesenteric defect including jejunojejunostomy mesenteric defects were completely scarred. No internal hernias were identified. Epigastric adhesions involving omentum to abdominal wall was also divided. The jejunojejunostomy had scarring involving the greater omentum towards the retroperitoneum. No intussusception or volvulus was identified. Lysis of adhesions over 30 minutes was performed in total. The small bowel was viable.The robot was undocked. All pneumoperitoneum instruments were evacuated from the abdominal cavity. The incisions were reapproximated using 4-0 Monocryl in an interrupted subcuticular fashion. Please note along the trocar sites, local anesthetic was placed as a field block prior to insertion of all instruments. Exofin was applied to the skin. At the end of the procedure needle, sponge, and instrument count had been verified correct by the surgical garment assembly supervisor. The patient was transferred to postanesthesia care unit in stable condition. Plan - Discharge Summary Discharge Rx Participant: Yes New Discharge Prescriptions: New Simethicone [Gas-X] 125 mg PO AC-TID PRN #20 capsule PRN Reason: Pain Acetaminophen Tab [Tylenol Tab] 500 mg PO Q6H PRN #30 tablet PRN Reason: Pain Continue amLODIPine [Norvasc] 10 mg PO DAILY Lidocaine 4% Cream [Lmx 4] 1 applic TOPICAL DAILY PRN PRN Reason: Pain Gabapentin [Neurontin] 400 mg PO TID Multivitamins, Thera [Multivitamin (formulary)] 1 tab PO DAILY Fluticasone Nasal [place] [Flonase Nasal [place]] 2 spr EA NOSTRIL DAILY EPINEPHrine [Epipen 2-Danilo] 0.3 mg IM ONCE PRN PRN Reason: Anaphylaxis Ondansetron Odt [Zofran ODT] 4 mg PO Q8HR PRN #10 tab PRN Reason: Nausea Omeprazole [PriLOSEC] 40 mg PO DAILY #90 cap Ergocalciferol [Vitamin D2 (1250 Mcg = 53352 Iu)] 1,250 mcg PO MO Tramadol(Dose Unknown) 1 tab PO DIRECTED PRN PRN Reason: Pain Metoprolol Tartrate [Lopressor] 50 mg PO BID Losartan/Hydrochlorothiazide [Losartan-Hctz 100-12.5 mg Tab] 1 tab PO DAILY Sertraline [Zoloft] 25 mg PO DAILY Nortriptyline [Pamelor] 25 mg PO HS Discharge Medication List EPINEPHrine [Epipen 2-Danilo] 0.3 mg IM ONCE PRN 10/14/17 [History] Fluticasone Nasal [place] [Flonase Nasal [place]] 2 spr EA NOSTRIL DAILY 10/14/17 [History] Gabapentin [Neurontin] 400 mg PO TID 10/14/17 [History] Lidocaine 4% Cream [Lmx 4] 1 applic TOPICAL DAILY PRN 10/14/17 [History] Multivitamins, Thera [Multivitamin (formulary)] 1 tab PO DAILY 10/14/17 [History] Ondansetron Odt [Zofran ODT] 4 mg PO Q8HR PRN #10 tab 10/14/17 [Rx] amLODIPine [Norvasc] 10 mg PO DAILY 10/14/17 [History] Omeprazole [PriLOSEC] 40 mg PO DAILY #90 cap 01/16/21 [Rx] Ergocalciferol [Vitamin D2 (1250 Mcg = 14917 Iu)] 1,250 mcg PO MO 07/19/21 [History] Losartan/Hydrochlorothiazide [Losartan-Hctz 100-12.5 mg Tab] 1 tab PO DAILY 0 07/19/21 [History] Metoprolol Tartrate [Lopressor] 50 mg PO BID 07/19/21 [History] Nortriptyline [Pamelor] 25 mg PO HS 07/19/21 [History] Sertraline [Zoloft] 25 mg PO DAILY 07/19/21 [History] Tramadol(Dose Unknown) 1 tab PO DIRECTED PRN 07/19/21 [History] Acetaminophen Tab [Tylenol Tab] 500 mg PO Q6H PRN #30 tablet 09/09/21 [Rx] Simethicone [Gas-X] 125 mg PO AC-TID PRN #20 capsule 09/09/21 [Rx] Follow up Appointment(s)/Referral(s): [facility] [NON-STAFF] - 09/13/21 (YOU WILL NEED TO CALL TO SCHEDULE YOUR FOLLOW UP APPOINTMENT) Patient Instructions/Handouts: *[facility] - Managing Your Pain After Surgery Without Opioids, *[facility] - (Anesthesia) Discharge Instructions Outpatient Surgery, *[facility] - Scopalamine Patch Instructions, Lysis of Abdominal Adhesions (DC) Discharge Disposition: HOME SELF-CARE
== END 2021-09-09 16:05 | disposition home or self-care (01) ==
LOC: OR 08:43
PROVIDERS: ATTEND Surgery Plastic and Reconstructive Surgery
DX: R10.13 Epigastric pain (principal); I11.0 Hypertensive heart disease with heart failure; I50.9 Heart failure, unspecified; G43.909 Migraine, unspecified, not intractable, without status migrainosus; F41.1 Generalized anxiety disorder; K21.9 Gastro-esophageal reflux disease without esophagitis; Z98.84 Bariatric surgery status
CPT/HCPCS: 44180; 64999; J2250; J1100; J2710; J0690; J2405; J2001; J3010; J2795; J0330; J2704; J1644

== ENCOUNTER → 2021-09-18 | Outpatient (CLI) | payer BC ==
[2021-09-18 15:42] VITALS: BP 179/102; PULSE 88; RESP 16; TEMP 98.2; BMI 32.8
--- NOTE | 2021-09-18 16:08 | P.BASOAP ---
Subjective Progress Note Date: 09/18/21 DATE OF SERVICE: 09/18/2021 CHIEF COMPLAINT: Status post gastric bypass HISTORY OF PRESENT ILLNESS: Mala Duncan is a 55-year-old female status post gastric bypass 2013 in [place] at [facility]. She is 8 years out. She is status post lysis of adhesions 09/09/21. She is over 1 week out. She reports she is adopted. She just found her family. She reports incisional pain but prior left upper quadrant pain resolved. Separately, she reports pre-existing severe gastroesophageal reflux disease. At height of 5 feet 8 inches, her ideal body weight is 163 pounds. Her highest weight was 315 pounds, BMI 48.0. Her lowest weight was 170 pounds. She comes in 216 pounds from 209 pounds, 2 months ago. She has gained 7 pounds in 2 months. Her body mass index is 32.8. She is 53 pounds overweight. Lifetime weight loss is 99 pounds. Lifetime percent excess weight loss is 65 %. PHYSICAL EXAM: VITAL SIGNS: Height 5 foot 8 inches, weight 216 pounds. BMI 32.8 Vital Signs Temp 98.2 F 09/18/21 15:39 Pulse 88 09/18/21 15:39 Resp 16 09/18/21 15:39 BP 179/102 09/18/21 15:39 Pulse Ox GENERAL: Well-developed in no acute distress. HEENT: No scleral icterus. Extraocular movements grossly intact. Hears conversational speech. No nasal drainage. NECK: Supple without lymphadenopathy. CHEST: Nonlabored respirations with equal bilateral excursions. CARDIOVASCULAR: Regular rate and rhythm. Distal 2+ pulses. ABDOMEN: Obese, soft, nontender, nondistended. MUSCULOSKELETAL: No clubbing, cyanosis. NEURO: No focal or lateralizing signs. Cranial nerves 2 through 12 grossly within normal limits. PSYCH: Appropriate affect. Alert and oriented to person, place and time. SKIN: Good skin turgor. Well perfused. ASSESSMENT: 1. Morbid obesity due to excess calories 2. Body mass index of 48.0, initial to 32.8 3. Hypertensive heart disease. 4. Neuropathy 5. Gastroesophageal reflux disease 6. Generalized anxiety disorder 7. Hiatal hernia 8. History of gastric bypass 9. Chronic gastrojejunal ulceration with stricture 10. Hyperlipidemia. 11. Vitamin D deficiency 12. Secondary hyperparathyroidism. 13. Left upper quadrant pain. 14. Peritoneal adhesions. 15. Abnormal EKG. 16. Status post lysis of adhesions. PLAN: 1. For incisional pain, recommend vibrating massage along her incisions. 2. She reports severe gastroesophageal reflux and wants a hiatal hernia repair. She is elevated risk of complications with recent surgery and uncontrolled hypertension. 3. Recommend at least 30 days between any procedures. Objective - Vital Signs Vital signs: Vital Signs Temp 98.2 F 09/18/21 15:39 Pulse 88 09/18/21 15:39 Resp 16 09/18/21 15:39 BP 179/102 09/18/21 15:39 Pulse Ox Intake & Output 09/17/21 09/18/21 09/18/21 18:59 06:59 18:59 Weight 97.976 kg Assessment/Plan Plan: Date: 09/18/21 Initial Weight: 142.882 kg Initial BMI: 47.9 Current Weight: 97.976 kg Current BMI: 32.8 Type of Surgery: Total Volume in Band: Previous Volume: Volume Removed: Volume Added: Band Size:
== END ==
LOC: BARWHC3 15:30
PROVIDERS: ATTEND Surgery Plastic and Reconstructive Surgery
DX: E66.01 Morbid (severe) obesity due to excess calories (principal); Z68.32 Body mass index [BMI] 32.0-32.9, adult; I11.9 Hypertensive heart disease without heart failure; G62.9 Polyneuropathy, unspecified; K21.9 Gastro-esophageal reflux disease without esophagitis; F41.1 Generalized anxiety disorder; K25.7 Chronic gastric ulcer without hemorrhage or perforation; E78.5 Hyperlipidemia, unspecified; E55.9 Vitamin D deficiency, unspecified; E21.1 Secondary hyperparathyroidism, not elsewhere classified; K66.0 Peritoneal adhesions (postprocedural) (postinfection); Z98.890 Other specified postprocedural states; R94.31 Abnormal electrocardiogram [ECG] [EKG]; Z88.6 Allergy status to analgesic agent; Z91.030 Bee allergy status; Z91.040 Latex allergy status; Z88.0 Allergy status to penicillin; Z88.5 Allergy status to narcotic agent
CPT/HCPCS: 99211

== ENCOUNTER 2021-10-14 11:16 | Inpatient (IN) | payer BC ==
--- NOTE | 2021-10-14 09:40 | P.GSHP ---
History of Present Illness H&P Date: 10/14/21 CHIEF COMPLAINT: Hiatal hernia with gastroesophageal reflux disease. HISTORY OF PRESENT ILLNESS: The patient is a 56-year-old female who presents with hiatal hernia. She has completed upper endoscopy workup. Now she presents for surgical intervention. PAST MEDICAL HISTORY: Please see list. PAST SURGICAL HISTORY: Please see list. MEDICATIONS: Please see list. ALLERGIES: Please see list. SOCIAL HISTORY: No illicit drug use FAMILY HISTORY: No reports of Crohn disease or ulcerative colitis. REVIEW OF ORGAN SYSTEMS: CONSTITUTIONAL: No reports of fevers or chills. GI: Denies any blood in stools or constipation. PHYSICAL EXAM: VITAL SIGNS: Stable GENERAL: Well-developed pleasant and in no acute distress. HEENT: No scleral icterus. Extraocular movements grossly intact. Moist buccal mucosa. NECK: Supple without lymphadenopathy. CHEST: Unlabored respirations. Equal bilateral excursions. CARDIOVASCULAR: Regular rate and rhythm. Distal 2+ pulses. ABDOMEN: Soft, nondistended. No peritoneal signs. MUSCULOSKELETAL: No clubbing, cyanosis, or edema. SKIN: Well-perfused. Good skin turgor. ASSESSMENT: 1. Diaphragmatic paraesophageal hiatal hernia with severe gastroesophageal reflux disease. PLAN: 1. Recommend proceeding with a robotic paraesophageal hiatal hernia with possible mesh. 2. Benefits and risks of surgical intervention was discussed including possibility of open technique. 3. Inpatient hospitalization recommended of 2 nights 4. DVT prophylaxis. 5. Antibiotic prophylaxis. 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 Chronic back pain, knee pains History of Any Multi-Drug Resistant Organisms: None Reported Past Surgical History: Bariatric Surgery, Cholecystectomy, Hernia Repair, Uterine Ablation Additional Past Surgical History / Comment(s): Umbilical hernia as child. Woody-En-Y Gastric Bypass 2013; Uterine Ablation, EGD, Colonoscopy; Lysis of Adhesions 09/19/21 Past Anesthesia/Blood Transfusion Reactions: No Reported Reaction, Unable to Obtain Additional Past Anesthesia/Blood Transfusion Reaction / Comment(s): No family hx known Smoking Status: Never smoker - Past Family History Mother History Unknown: Yes Additional Family Medical History / Comment(s): PT ADOPTED-FAMILY HX UNKNOWN Medications and Allergies Home Medications Medication Instructions Recorded Confirmed Type EPINEPHrine [Epipen 2-Danilo] 0.3 mg IM ONCE PRN 10/14/17 10/10/21 History Fluticasone Nasal [place] [Flonase 2 spr EA NOSTRIL DAILY 10/14/17 10/10/21 History Nasal [place]] Gabapentin [Neurontin] 400 mg PO TID 10/14/17 10/10/21 History Lidocaine 4% Cream [Lmx 4] 1 applic TOPICAL DAILY PRN 10/14/17 10/10/21 History Multivitamins, Thera [Multivitamin 1 tab PO DAILY 10/14/17 10/10/21 History (formulary)] Ondansetron Odt [Zofran ODT] 4 mg PO Q8HR PRN #10 tab 10/14/17 10/10/21 Rx amLODIPine [Norvasc] 10 mg PO DAILY 10/14/17 10/10/21 History Omeprazole [PriLOSEC] 40 mg PO DAILY #90 cap 01/16/21 10/10/21 Rx Ergocalciferol [Vitamin D2 (1250 1,250 mcg PO MO 07/19/21 10/10/21 History Mcg = 56211 Iu)] Losartan/Hydrochlorothiazide 1 tab PO DAILY 07/19/21 10/10/21 History [Losartan-Hctz 100-12.5 mg Tab] Metoprolol Tartrate [Lopressor] 50 mg PO BID 07/19/21 10/10/21 History Nortriptyline [Pamelor] 25 mg PO HS 07/19/21 10/10/21 History Sertraline [Zoloft] 25 mg PO DAILY 07/19/21 10/10/21 History Acetaminophen Tab [Tylenol Tab] 500 mg PO Q6H PRN #30 tablet 09/09/21 10/10/21 Rx Simethicone [Gas-X] 125 mg PO AC-TID PRN #20 capsule 09/09/21 10/10/21 Rx traMADol HCL [Ultram] 50 mg PO BID PRN 10/10/21 10/10/21 History Allergies Allergy/AdvReac Type Severity Reaction Status Date / Time aspirin Allergy Rash/Hives Verified 10/10/21 11:02 bee pollen Allergy Anaphylaxis Verified 10/10/21 11:02 fluoxetine Allergy Rash/Hives Verified 10/10/21 11:02 latex Allergy Rash/Hives Verified 10/10/21 11:02 lisinopril Allergy Unknown Verified 10/10/21 11:02 Penicillins Allergy Rash/Hives Verified 10/10/21 11:02 NSAIDS (Non-Steroidal AdvReac Bariatric Verified 10/10/21 11:02 Anti-Inflamma Surgery
[~2021-10-14 11:16] MED LIST changes: +CHLORHEXIDINE GLUCONATE 15 ML CUP MUCOUS MEM PRN; +DEXAMETHASONE SOD PHOSPHATE 4 MG/ML 1 ML VIAL IV ONE; +ENOXAPARIN 40 MG/0.4 ML SYRINGE SQ PRN; +MIDAZOLAM 2 MG/2 ML VIAL IV PRN; +ONDANSETRON 4 MG/2 ML VIAL IVP ONE; +PANTOPRAZOLE 40 MG/10 ML VIAL IVP PRN; -Pre Op ABX Message 1 EACH MISC MISCELLANE ONE; +SCOPOLAMINE 1 MG/72 HR PATCH TRANSDERM ONE
[2021-10-14] MEDS ORDERED: LIDOCAINE 1% (10MG/ML) FOR IV START INTRADERMA ONE (12:47)
[2021-10-14] MEDS: LACTATED RINGERS 1,000 ML IV SCH (12:47)
[2021-10-14] MEDS ORDERED: MIDAZOLAM 2 MG/2 ML VIAL IVP ONE (13:01)
[2021-10-14] MEDS ORDERED: LIDOCAINE 1% INJ 10MG/ML (20 ML MDV) ONE (14:17)
[2021-10-14] MEDS ORDERED: NEOSTIGMINE 1 MG/ML 10 ML VIAL ONE (14:17)
[2021-10-14] MEDS ORDERED: MIDAZOLAM 2 MG/2 ML VIAL ONE (14:17)
[2021-10-14] MEDS ORDERED: GLYCOPYRROLATE 0.2 MG/ML 2 ML VIAL ONE (14:17)
[2021-10-14] MEDS ORDERED: HYDROmorphone (PF) 1 MG/ML ONE (14:17)
[2021-10-14] MEDS ORDERED: ePHEDrine 50 MG/ML 1 ML VIAL ONE (14:17)
[2021-10-14] MEDS ORDERED: fentaNYL (PF) 50 MCG/ML 2 ML AMP ONE (14:17)
[2021-10-14] MEDS ORDERED: ROCURONIUM 10 MG/ML (5 ML VIAL) IV ONE (14:17)
[2021-10-14] MEDS ORDERED: SUCCINYLCHOLINE CHLORIDE 100 MG/5 ML SYR IV ONE (14:17)
[2021-10-14] MEDS ORDERED: WATER FOR INJECTION, STERILE 10 ML VIAL IV ONE (14:17)
[2021-10-14] MEDS ORDERED: PROPOFOL 10 MG/ML 20 ML VIAL IV ONE (14:17)
[2021-10-14] MEDS ORDERED: BUPIVACAINE (PF) 0.25% 30 ML VIAL SQ ONE ×2 (14:26→15:00)
[2021-10-14] MEDS ORDERED: LACTATED RINGERS 1,000 ML IV ONE (15:39)
[2021-10-14] MEDS: HYDROmorphone 0.5 MG/0.5 ML SYRINGE IVP PRN ×2 (17:50→18:14)
[2021-10-14] MEDS ORDERED: HYOSCYAMINE ORAL DROPS 1.875 MG/15 ML BOTTLE PO PRN (18:09)
[2021-10-14] MEDS ORDERED: diphenhydrAMINE 50 MG/ML 1 ML VIAL IVP PRN (18:09)
[2021-10-14] MEDS ORDERED: NALOXONE 0.4 MG/ML 1 ML VIAL IV PRN (18:09)
[2021-10-14] MEDS: ONDANSETRON 4 MG/2 ML VIAL IVP SCH (19:46)
[2021-10-14] MEDS: PANTOPRAZOLE 40 MG/10 ML VIAL IV SCH (19:47)
[2021-10-14] MEDS: HYDROmorphone 1 MG/ML 1 ML SYRINGE IVP PRN (19:47)
[2021-10-14] MEDS: ALBUTEROL NEBULIZED 2.5 MG/3 ML INHALATION SCH (19:50)
[2021-10-14] MEDS: 0.9% NACL WITH KCL 20 MEQ/L 1,000 ML IV SCH (20:33)
[2021-10-14] MEDS ORDERED: LIDOCAINE 4% CREAM 5 GM TUBE TOPICAL PRN (20:45)
[2021-10-14] MEDS ORDERED: traMADol 50 MG TAB PO PRN (20:45)
--- NOTE | 2021-10-14 21:06 | P.OP ---
Date of Procedure: 10/14/21 Description of Procedure: SURGEON: BRE HUTCHINS MD PREOPERATIVE DIAGNOSES: 1. Gastroesophageal reflux disease 2. Paraesophageal hiatal hernia, midline. 3. Epigastric abdominal pain 4. History of gastric bypass 5. Hypertensive heart disease 6. Dysphagia 7. Fibromyalgia 8. Migraines 9. Chronic back pain 10. History of peritoneal adhesions 11. Obstructive sleep apnea POSTOPERATIVE DIAGNOSES: 1. Gastroesophageal reflux disease 2. Paraesophageal hiatal hernia, midline, incarcerated, 3 x 3 cm 3. Epigastric abdominal pain 4. History of gastric bypass 5. Hypertensive heart disease 6. Dysphagia 7. Fibromyalgia 8. Migraines 9. Chronic back pain 10. History of peritoneal adhesions 11. Obstructive sleep apnea OPERATION: 1. Robotic-assisted da Shanda Xi laparoscopic reduction and repair of recurrent incarcerated paraesophageal hiatal hernia, 3 x 3 cm, without mesh 2. Robotic-assisted da Shanda Xi laparoscopic extensive lysis of adhesions over 1 hour 3. Intraoperative esophagogastroscopy 4. Esophageal dilation, 54-Serbian bougie for dysphagia ANESTHESIA: General with local anesthetic. ESTIMATED BLOOD LOSS: 5 mL Pathology: None COMPLICATIONS: None. FINDINGS: 1. Moderate intra-abdominal adhesions gastric pouch to liver lysed 2. Retroperitoneal lesion involving jejunojejunostomy without complete bowel obstruction 3. Distal esophageal pre-existing stricture addressed with esophageal savory dilator, 54-Serbian 4. Petersons defect and jejunojejunostomy defect completely scarred 5. Common channel within normal limits with mild dilation of Woody limb 6. Esophageal length over 2 cm obtained 7. GE junction at 34 cm INDICATIONS: The patient is a 56-year-old female who presents with epigastric abdominal pain, history of gastric bypass and a symptomatic diaphragmatic hiatal hernia. Preoperative workup including upper endoscopy demonstrated hiatal hernia. Given the severity of her symptoms, she had elected for surgical intervention. Benefits and risks including bleeding, infection, recurrence, dysphagia, injury to the lung, need for further surgery was described at length. Informed consent was obtained. DESCRIPTION: The patient was brought into the operating room and placed in supine position. After general induction, upper endoscopy was performed to review for active gastrojejunal ulcerations. A timeout protocol was confirmed with the surgical team, for which the patient's name, procedure to be performed including DVT prophylaxis with bilateral SCDs, and preoperative antibiotics were also confirmed. After timeout protocol, the Olympus gastroscope was placed along the posterior oropharynx down to the esophagus where mild stricture was found at the distal esophagus. The gastric pouch was identified without gastrojejunal stricture or active ulcers. The scope was passed to 60 cm with the incisors where the Woody limb was within normal limits. The abdomen was prepped and draped in standard sterile fashion. Ioban draping was placed along the abdomen. A robotic da Shanda Xi system was prepped and primed. At 13 cm from the xiphoid to just below the umbilicus, proposed port sites were marked with indelible marker along the left axillary line, left mid-clavicular line with each ports were marked 10 cm from each other. A 5 mm 0 degrees laparoscopic trocar entry was performed along the left upper quadrant. The abdomen was insufflated to 15 mmHg pressure was tolerated well. Diagnostic laparoscopy demonstrated no injury to bowel, viscera. Adhesions were identified of the gastric pouch including stomach were adherent to the underside of the liver. Next, one 8 mm robotic port was placed along the right upper abdomen. An 8-mm port was were placed along the left lateral abdominal wall. The camera 8-mm port was maintained along the epigastrium. Another 12 mm port was placed along the left upper abdominal wall after exchanging the 5 mm port. Please note that the ports were placed at least 20 cm away from the target anatomy. Care was taken to check that each robotic arm were safely away from collision with the bed or the patient. The patient was repositioned in reverse Trendelenburg position at 21-degrees after lowering the bed. The robot was docked above the left side of the patient. Using a grasper for arm 3, a grasper for arm 1, including vessel sealer for arm 2, the robotic system was docked and primed as described. Instruments were interchanged by the assistant infant teacher. I had sat at the console. Initial attention was brought to the severe peritoneal adhesions involving the greater omentum to the anterior abdominal wall of the epigastrium including midline. Using combination blunt dissection including vessel sealer for sharp dissection and scissors, lysis of adhesions over 1 hour was performed. Adhesions were identified along the hiatus which was similarly addressed using sharp including blunt dissection. The gastric pouch was lysed of adhesions along the liver. Dissection was carried to the hiatus circumferentially using vessel sealer including blunt dissection. To prevent any injury to the esophagus including proximal stomach, I performed an intraoperative upper endoscopy with the scope entering along the posterior oropharynx into the stomach and left in place as a bougie. The remnant gastrohepatic ligament was cleaved using a vessel sealer. Next, the phrenoesophageal ligament was mobilized and the distal esophagus was mobilized circumferentially. An incarcerated hernia sac was found into the mediastinum. Dissection into the mediastinum was performed. The left and right crura was identified. Care was taken to avoid any gastrotomy to the incarcerated upper pole of the stomach. The measured defect was measured with a ruler consistent with 3 cm axial length and 3 cm in width. After dissection, the distal esophagus at least 2 cm was brought into the abdominal cavity. Once the hiatus and crura was dissected, nonabsorbable 2-0 VLOC suture was placed as a running suture to re-approximate the diaphragmatic hiatus posteriorly. I went to the head of the bed to perform intraoperative esophagogastroduodenoscopy. An Olympus gastroscope was passed through posterior oropharynx, where the squamocolumnar junction was confirmed at 36 cm from the incisors. The hiatus repair was confirmed at 34 cm from the incisors. The scope was exchanged for a bougie. Next, a 54-Serbian bougie was placed along the esophagus to address distal esophageal stricture. The bougie was left 1 minute. Repeat upper endoscopy was performed confirming no mucosal injuries. After completion of the hiatal hernia, the Woody gastric bypass were reassessed. The Woody limb was mildly dilated and followed towards to jejunojejunostomy. No active bowel obstruction was identified. The robot was re-docked looking into the to assess the terminal ileum proximal to jejunojejunostomy. No internal hernias were identified. The common chills within normal limits. The robot was undocked from the patient. I re-scrubbed into the case. All instruments and pneumoperitoneum were evacuated from the abdominal cavity. The incisions were cleansed with dilute hydrogen peroxide with saline solution. Incisions were reapproximated using 4-0 Monocryl in an interrupted subcuticular fashion. The 12-mm port site fascial defect was less than 8 mm in size. Exofin was applied to the skin. Local anesthetic was infiltrated in all wounds for postop analgesia. Multiple intra-abdominal films were obtained. At the end of the procedure, needle, sponge, and instrument count was verified correct by the surgical elastic knitter. The patient had tolerated the procedure well and was taken to the postanesthesia unit in stable condition. Intraoperative films were reviewed with the patient's family who were pleased with the level of care.
[2021-10-14] MEDS: METOPROLOL TARTRATE 50 MG TAB PO SCH (21:37)
[2021-10-14] MEDS: NORTRIPTYLINE 25 MG CAP PO SCH (21:37)
[2021-10-14] MEDS: GABAPENTIN 400 MG CAP PO SCH (21:37)
[2021-10-15] MEDS: ACETAMINOPHEN IV (For NPO) 1,000 MG in EMPTY BAG 1 BAG IVPB SCH ×4 (00:14→17:57)
[2021-10-15] MEDS: SIMETHICONE 40 MG/0.6 ML DROPS 2,000 MG/30 ML BOTTLE PO SCH ×4 (00:16→17:57)
[2021-10-15] MEDS: HYDROmorphone 1 MG/ML 1 ML SYRINGE IVP PRN ×5 (01:08→21:21)
[2021-10-15] MEDS: LACTATED RINGERS 1,000 ML IV SCH (02:27)
[2021-10-15] MEDS: 0.9% NACL WITH KCL 20 MEQ/L 1,000 ML IV SCH ×3 (05:29→21:22)
[2021-10-15] MEDS: ONDANSETRON 4 MG/2 ML VIAL IVP SCH ×3 (05:30→17:57)
[2021-10-15 09:14] LABS: Basophils # (A) 0.03 X 10*3/uL (0.00-0.10); Basophils % (A) 0.3 %; Eosinophils # (A) 0.03 X 10*3/uL (0.04-0.35); Eosinophils % (A) 0.3 %; HCT 37.5 % (37.2-46.3); HGB 11.8 g/dL (12.0-15.0); Immature Grans, Automated 0.2 %; Lymphocytes # (A) 1.96 X 10*3/uL (0.90-5.00); Lymphocytes % (A) 21.3 %; MCH 28.4 pg (27.0-32.0); MCHC 31.5 g/dL (32.0-37.0); MCV 90.1 fL (80.0-97.0); Monocytes # (A) 0.53 X 10*3/uL (0.20-1.00); Monocytes % (A) 5.8 %; NRBC Per 100 WBC 0 /100 WBCS (0.0-0.0); Neutrophils # (A) 6.62 X 10*3/uL (1.80-7.70); Neutrophils % (A) 72.1 %; Platelet Count 258 X 10*3/uL (140-440); RBC 4.16 X 10*6/uL (4.10-5.20); RDW 12.5 % (11.5-14.5); WBC 9.19 X 10*3/uL (4.50-10.00)
[2021-10-15 09:26] LABS: Magnesium 1.9 mg/dL (1.5-2.4)
[2021-10-15 09:33] LABS: African American GFR (CKD) 113.3 (60.0-200.0); Calcium 8.6 mg/dL (8.7-10.3); Carbon Dioxide 22.3 mmol/L (20.0-27.5); Non-African American GFR(CKD) 97.8 (60.0-200.0); Phosphorus 3.6 mg/dL (2.4-5.1); Potassium 3.9 mmol/L (3.5-5.5)
[2021-10-15] MEDS: ALBUTEROL NEBULIZED 2.5 MG/3 ML INHALATION SCH ×4 (09:33→19:26)
[2021-10-15] MEDS: GABAPENTIN 400 MG CAP PO SCH ×3 (09:53→19:58)
[2021-10-15] MEDS: LOSARTAN-HCTZ 50-12.5 MG 1 EACH TAB PO SCH (09:53)
[2021-10-15] MEDS: ENOXAPARIN 40 MG/0.4 ML SYRINGE SQ SCH (09:54)
[2021-10-15] MEDS: LOSARTAN 50 MG TAB PO SCH (09:54)
[2021-10-15] MEDS: METOPROLOL TARTRATE 50 MG TAB PO SCH ×2 (09:54→19:58)
[2021-10-15] MEDS: amLODIPine 10 MG TAB PO SCH (09:54)
[2021-10-15] MEDS: PANTOPRAZOLE 40 MG/10 ML VIAL IV SCH ×2 (09:54→19:58)
[2021-10-15] MEDS: FLUTICASONE 50MCG/SPRAY NASAL 16GM EA NOSTRIL SCH (09:56)
[2021-10-15] MEDS ORDERED: SODIUM CHLORIDE 0.9% 2,000 ML IV ONE (10:36)
--- NOTE | 2021-10-15 10:52 | FL ---
EXAMINATION TYPE: FL UGI DATE OF EXAM: 10/15/2021 LIMITED UGI-ESOPHAGRAM: CLINICAL HISTORY: Postoperative hiatal hernia repair. History of gastric bypass. TECHNIQUE: Limited esophagram is performed utilizing 50 mL of Isovue-370. A total of 1 minute and 1 second of fluoroscopic time was utilized during procedure. A 25 spot images were sent to PACS. FINDINGS: Previous gastrojejunostomy. The patient swallowed contrast without difficulty or delay. E sophageal peristalsis and motility are within normal limits. There is good flow of contrast along the diaphragmatic hiatus into the gastrojejunostomy, there is no evidence of contrast extravasation to s uggest leak. No persistent hiatal hernia is seen during the study. Patient remains asymptomatic. IMPRESSION: No evidence of leak or significant obstruction status post hiatal hernia repair as descri bed above.
[2021-10-15 14:04] VITALS: BMI 29.2
--- NOTE | 2021-10-15 15:28 | P.PN ---
Subjective Progress Note Date: 10/15/21 CHIEF COMPLAINT: Hiatal hernia HISTORY OF PRESENT ILLNESS: Patient is status post Robotic-assisted da Shadna Xi laparoscopic reduction and repair of recurrent incarcerated paraesophageal hiatal hernia, 3 x 3 cm, without mesh and extensive lysis of adhesions over. Patient complains of abdominal pain. Reports that it is controlled with pain medication. She did have nausea this morning and felt very dry and thirsty. She was given a 2 L fluid bolus with some improvement in her nausea. She denies any flatus or bowel movement. Afebrile. Upper GI shows no evidence of leak or significant obstruction. She's currently on a bariatric clear liquids. WBC is 9.19 hemoglobin 11.8 platelets 258 sodium 136 potassium 3.9 creatinine 0.7 magnesium 1.9 PHYSICAL EXAM: VITAL SIGNS: Reviewed GENERAL: Well-developed in no acute distress. HEENT: No sclera icterus. Extraocular movements grossly intact. Moist buccal mucosa. Head is atraumatic, normocephalic. Hears conversational speech. No nasal drainage. NECK: Supple without lymphadenopathy. CHEST: Non-labored respirations and equal bilateral excursions. CARDIOVASCULAR: Palpable 2+ radial pulses. ABDOMEN: Soft. Nondistended. Incision sites clean dry and intact MUSCULOSKELETAL: No clubbing or cyanosis. NEUROLOGIC: No focal or lateralizing signs. Cranial nerves II through XII grossly intact. PSYCH: Appropriate affect. Alert and oriented to person, place and time. SKIN: Well perfused. Good skin turgor. ASSESSMENT: 1. Gastroesophageal reflux disease 2. Paraesophageal hiatal hernia, midline, incarcerated, 3 x 3 cm 3. Epigastric abdominal pain 4. History of gastric bypass 5. Hypertensive heart disease 6. Dysphagia 7. Fibromyalgia 8. Migraines 9. Chronic back pain 10. History of peritoneal adhesions 11. Obstructive sleep apnea PLAN: -Continue bariatric clear liquid diet -Continue supportive care -Continue IV fluids -Patient given a 2 L fluid bolus this morning -Continue antiemetics -Continue scopolamine patch -Continue pain medication as needed -Encourage patient to ambulate -Anticipate discharge tomorrow -DVT prophylaxis Lovenox and GI prophylaxis Protonix Physician Traveling Sales Executive note has been reviewed by physician. Signing provider agrees with the documented findings, assessment, and plan of care. CHIEF COMPLAINT: Hiatal hernia with gastroesophageal reflux disease. HISTORY OF PRESENT ILLNESS: The patient is a 56-year-old female status post hiatal hernia repair could lyse of adhesions. Her pre-existing epigastric abdominal pain is now resolved. She is able tolerate liquids without odynophag ia. REVIEW OF ORGAN SYSTEMS: CONSTITUTIONAL: No reports of fevers or chills. GI: Denies any blood in stools or constipation. PHYSICAL EXAM: VITAL SIGNS: Stable GENERAL: Well-developed pleasant and in no acute distress. HEENT: No scleral icterus. Extraocular movements grossly intact. Moist buccal mucosa. NECK: Supple without lymphadenopathy. CHEST: Unlabored respirations. Equal bilateral excursions. CARDIOVASCULAR: His incision is intact. ABDOMEN: Soft, nondistended. No peritoneal signs. MUSCULOSKELETAL: No clubbing, cyanosis, or edema. SKIN: Well-perfused. Good skin turgor. LABS: Reviewed. WBC normal. STUDIES: Esophagram demonstrates no obstruction per report. ASSESSMENT: 1. Diaphragmatic paraesophageal hiatal hernia with severe gastroesophageal reflux disease. PLAN: 1. Recommend bariatric diet following discharge 2. Dietary instructions for gastric bypass reviewed. 3. Disposition in 24 hours pending tolerating diet Objective - Vital Signs Vital signs: Vital Signs Temp 98.1 F 10/15/21 12:12 Pulse 74 10/15/21 12:58 Resp 16 10/15/21 12:12 BP 118/77 10/15/21 12:12 Pulse Ox 93 L 10/15/21 03:00 Intake & Output 10/14/21 10/15/21 10/15/21 18:59 06:59 18:59 Intake Total 1700 1300 Output Total 10 Balance 1690 1300 Weight 88.451 kg 88.451 kg Intake: IV 1700 Intake, IV Titration 1300 Amount 0.9% NaCl with KCl 20 Meq 1200 /l 1,000 ml @ 100 mls/hr IV .Q10H GUILLAUME Rx#: [id number] ceFAZolin 2 gm In Sodium 100 Chloride 0.9% 50 ml @ 100 mls/hr IVPB Q8H GUILLAUME Rx#: [id number] Output: Estimated Blood Loss 10 Other: Voiding Method Toilet Toilet - Labs CBC & Chem 7: 10/15/21 06:16 10/15/21 06:16 Labs: Abnormal Lab Results - Last 24 Hours (Table) 10/15/21 10/15/21 Range/Units 06:16 06:16 Hgb 11.8 L (12.0-15.0) g/dL MCHC 31.5 L (32.0-37.0) g/dL Eosinophils # 0.03 L (0.04-0.35) X 10*3/uL Calcium 8.6 L (8.7-10.3) mg/dL
[2021-10-15] MEDS: NORTRIPTYLINE 25 MG CAP PO SCH (19:58)
[2021-10-16] MEDS: ONDANSETRON 4 MG/2 ML VIAL IVP SCH ×3 (00:32→13:20)
[2021-10-16] MEDS: SIMETHICONE 40 MG/0.6 ML DROPS 2,000 MG/30 ML BOTTLE PO SCH ×3 (00:33→13:21)
[2021-10-16] MEDS: 0.9% NACL WITH KCL 20 MEQ/L 1,000 ML IV SCH ×2 (05:35→15:34)
[2021-10-16] MEDS: LACTATED RINGERS 1,000 ML IV SCH (05:36)
[2021-10-16] MEDS: HYDROmorphone 1 MG/ML 1 ML SYRINGE IVP PRN (05:57)
[2021-10-16] MEDS: ALBUTEROL NEBULIZED 2.5 MG/3 ML INHALATION SCH ×3 (07:51→15:56)
[2021-10-16] MEDS ORDERED: bisacodyL 5 MG TABLET.DR PO PRN (08:00)
[2021-10-16] MEDS: FLUTICASONE 50MCG/SPRAY NASAL 16GM EA NOSTRIL SCH (08:22)
[2021-10-16] MEDS: ENOXAPARIN 40 MG/0.4 ML SYRINGE SQ SCH (08:23)
[2021-10-16] MEDS: LOSARTAN-HCTZ 50-12.5 MG 1 EACH TAB PO SCH (08:23)
[2021-10-16] MEDS: GABAPENTIN 400 MG CAP PO SCH ×2 (08:23→16:12)
[2021-10-16] MEDS: amLODIPine 10 MG TAB PO SCH (08:23)
[2021-10-16] MEDS: LOSARTAN 50 MG TAB PO SCH (08:23)
[2021-10-16] MEDS: PANTOPRAZOLE 40 MG/10 ML VIAL IV SCH (08:23)
[2021-10-16] MEDS: METOPROLOL TARTRATE 50 MG TAB PO SCH (08:23)
--- NOTE | 2021-10-16 11:50 | P.DS ---
Providers Date of admission: 10/14/21 11:16 Expected date of discharge: 10/16/21 Attending physician: Aditi Cummings Primary care physician: Chidi Mast Layton Hospital Course: Discharge diagnosis 1. Gastroesophageal reflux disease 2. Paraesophageal hiatal hernia, midline, incarcerated, 3 x 3 cm 3. Epigastric abdominal pain 4. History of gastric bypass 5. Hypertensive heart disease 6. Dysphagia 7. Fibromyalgia 8. Migraines 9. Chronic back pain 10. History of peritoneal adhesions 11. Obstructive sleep apnea Hospital course The patient is a 56-year-old female who presents with epigastric abdominal pain, history of gastric bypass and a symptomatic diaphragmatic hiatal hernia. Preoperative workup including upper endoscopy demonstrated hiatal hernia. Patient is status post Robotic-assisted da Shanda Xi laparoscopic reduction and repair of recurrent incarcerated paraesophageal hiatal hernia and lysis of adhesions. Patient tolerated surgery well. Her pain is controlled. She had her upper GI which shows no evidence of leak or significant obstruction. She is tolerating bariatric clear liquid diet. She is having flatus. She is afebrile. She is ambulating. She is stable for discharge. Physician E Commerce Web Developer note has been reviewed by physician. Signing provider agrees with the documented findings, assessment, and plan of care. Patient Condition at Discharge: Stable Plan - Discharge Summary Discharge Rx Participant: Yes New Discharge Prescriptions: New Acetaminophen Tab [Tylenol Tab] 500 mg PO Q6H PRN #30 tablet PRN Reason: Pain Simethicone [Gas-X] 125 mg PO AC-TID PRN #20 capsule PRN Reason: Pain Continue amLODIPine [Norvasc] 10 mg PO DAILY Lidocaine 4% Cream [Lmx 4] 1 applic TOPICAL DAILY PRN PRN Reason: Pain Gabapentin [Neurontin] 400 mg PO TID Fluticasone Nasal [place] [Flonase Nasal [place]] 2 spr EA NOSTRIL DAILY EPINEPHrine [Epipen 2-Danilo] 0.3 mg IM ONCE PRN PRN Reason: Anaphylaxis Ondansetron Odt [Zofran ODT] 4 mg PO Q8HR PRN #10 tab PRN Reason: Nausea Omeprazole [PriLOSEC] 40 mg PO DAILY #90 cap traMADol HCL [Ultram] 50 mg PO BID PRN PRN Reason: Pain Metoprolol Tartrate [Lopressor] 50 mg PO BID Losartan/Hydrochlorothiazide [Losartan-Hctz 100-12.5 mg Tab] 1 tab PO DAILY Sertraline [Zoloft] 25 mg PO DAILY Nortriptyline [Pamelor] 25 mg PO HS Discontinued Multivitamins, Thera [Multivitamin (formulary)] 1 tab PO DAILY Ergocalciferol [Vitamin D2 (1250 Mcg = 52637 Iu)] 1,250 mcg PO MO Simethicone [Gas-X] 125 mg PO AC-TID PRN #20 capsule PRN Reason: Pain Acetaminophen Tab [Tylenol Tab] 500 mg PO Q6H PRN #30 tablet PRN Reason: Pain Discharge Medication List EPINEPHrine [Epipen 2-Danilo] 0.3 mg IM ONCE PRN 10/14/17 [History] Fluticasone Nasal [place] [Flonase Nasal [place]] 2 spr EA NOSTRIL DAILY 10/14/17 [History] Gabapentin [Neurontin] 400 mg PO TID 10/14/17 [History] Lidocaine 4% Cream [Lmx 4] 1 applic TOPICAL DAILY PRN 10/14/17 [History] Ondansetron Odt [Zofran ODT] 4 mg PO Q8HR PRN #10 tab 10/14/17 [Rx] amLODIPine [Norvasc] 10 mg PO DAILY 10/14/17 [History] Omeprazole [PriLOSEC] 40 mg PO DAILY #90 cap 01/16/21 [Rx] Losartan/Hydrochlorothiazide [Losartan-Hctz 100-12.5 mg Tab] 1 tab PO DAILY 07/19/21 [History] Metoprolol Tartrate [Lopressor] 50 mg PO BID 07/19/21 [History] Nortriptyline [Pamelor] 25 mg PO HS 07/19/21 [History] Sertraline [Zoloft] 25 mg PO DAILY 07/19/21 [History] traMADol HCL [Ultram] 50 mg PO BID PRN 10/10/21 [History] Acetaminophen Tab [Tylenol Tab] 500 mg PO Q6H PRN #30 tablet 10/14/21 [Rx] Simethicone [Gas-X] 125 mg PO AC-TID PRN #20 capsule 10/14/21 [Rx] [place] [facility]Ref[place] [facility] [place]18[facility]21 9:00 am Patient Instructions/Handouts: Hiatal Hernia (DC) Activity/Diet/Wound Care/Special Instructions: Liquid diet only for 2 weeks until October 28 No lifting over 4 pounds in 4 weeks, November 13November Shower. No soaking in bath tubs, until October 28 Please notify your surgeon if you develop nausea and vomiting including new onset of abdominal pain. Continue to use incentive spirometry to prevent pneumonias. Please continue to ambulate at home to prevent blood clots in legs. Follow-up at the bariatric center. Dressings to be discontinued by surgeon in the office. Drink 64 oz of fluid daily. Start protein shakes on . Notify bariatric center for temp over 101.0, increased pain, drainage from incisions. No straws or carbonated beverages. Liquid diet only. Sugar content should be less than 6 g to avoid dumping syndrome. Take MOM for constipation. CRUSH, OPEN, OR CUT TABLETS LARGER THAN A SIZE OF A TIC TAC ok to have decaf coffee Discharge Disposition: HOME SELF-CARE
[2021-10-16 12:08] VITALS: BP 153/83; RESP 18; TEMP 98.5
[2021-10-16 12:53] VITALS: PULSE 80
== END 2021-10-16 18:39 | disposition home or self-care (01) | DRG 328 ==
LOC: 2ORMAIN 11:16 → 5NMEDONC 18:26
PROVIDERS: ADMIT Surgery Plastic and Reconstructive Surgery; ATTEND Surgery Plastic and Reconstructive Surgery
PROC: 0DNU4ZZ Release Omentum, Percutaneous Endoscopic Approach (ICD-10-PCS; 2021-10-14)
PROC: 8E0W4CZ Robotic Assisted Procedure of Trunk Region, Percutaneous Endoscopic Approach (ICD-10-PCS; 2021-10-14)
PROC: 0D758ZZ Dilation of Esophagus, Via Natural or Artificial Opening Endoscopic (ICD-10-PCS; 2021-10-14)
PROC: 0DJ68ZZ Inspection of Stomach, Via Natural or Artificial Opening Endoscopic (ICD-10-PCS; 2021-10-14)
PROC: 0BQT4ZZ Repair Diaphragm, Percutaneous Endoscopic Approach (ICD-10-PCS; principal; 2021-10-14 12:50)
DX: K44.0 Diaphragmatic hernia with obstruction, without gangrene (principal); G43.909 Migraine, unspecified, not intractable, without status migrainosus; G47.33 Obstructive sleep apnea (adult) (pediatric); G89.29 Other chronic pain; I11.9 Hypertensive heart disease without heart failure; M62.9 Disorder of muscle, unspecified; K21.9 Gastro-esophageal reflux disease without esophagitis; K22.2 Esophageal obstruction; M54.9 Dorsalgia, unspecified; R13.10 Dysphagia, unspecified; K66.0 Peritoneal adhesions (postprocedural) (postinfection); M79.7 Fibromyalgia; Z79.899 Other long term (current) drug therapy; Z98.84 Bariatric surgery status; Z88.5 Allergy status to narcotic agent; Z91.030 Bee allergy status; Z88.8 Allergy status to other drugs, medicaments and biological substances; Z88.6 Allergy status to analgesic agent; Z91.040 Latex allergy status; Z88.0 Allergy status to penicillin
CPT/HCPCS: 74240; 80051; 82310; 82565; 83735; 84100; 84520; 85025; 94640; 94760

== ENCOUNTER → 2021-11-01 | Outpatient (CLI) | payer BC ==
[2021-11-01 10:28] VITALS: BP 170/90; PULSE 77; RESP 16; TEMP 98.2; BMI 32.1
--- NOTE | 2021-11-01 11:03 | P.BASOAP ---
Subjective Progress Note Date: 11/01/21 DATE OF SERVICE: 11/01/2021 CHIEF COMPLAINT: Status post gastric bypass HISTORY OF PRESENT ILLNESS: Mala Duncan is a 55-year-old female status post gastric bypass 2013 in [place] at [facility]. She is 8 years out. She status post hiatal hernia repair 10/14/2021. She is 2 weeks out. She reports complete resolution of epigastric pain and dysphagia following her surgery. She reports as expected incisional pain of the left abdomen incisions. Blood pressure has been uncontrolled despite medications. At height of 5 feet 8 inches, her ideal body weight is 163 pounds. Her highest weight was 315 pounds, BMI 48.0. Her lowest weight was 170 pounds. She comes in 212 pounds form 216 pounds, 2 weeks ago. She has lost 4 pounds in 2 weeks. Her body mass index is 32.2. She is 48 pounds overweight. Lifetime weight loss is 103 pounds. Lifetime percent excess weight loss is 68 %. PHYSICAL EXAM: VITAL SIGNS: Height 5 foot 8 inches, weight 212 pounds. BMI 32.2 Vital Signs Temp 98.2 F 11/01/21 10:24 Pulse 77 11/01/21 10:24 Resp 16 11/01/21 10:24 BP 170/90 11/01/21 10:24 Pulse Ox Intake & Output 11/01/21 11/02/21 11/02/21 18:59 06:59 18:59 Weight 95.98 kg GENERAL: Well-developed in no acute distress. Young in appearance. HEENT: No scleral icterus. Extraocular movements grossly intact. Hears conversational speech. No nasal drainage. NECK: Supple without lymphadenopathy. CHEST: Nonlabored respirations with equal bilateral excursions. CARDIOVASCULAR: Tachycardic. Distal 2+ pulses. ABDOMEN: Obese, soft, nontender, nondistended. MUSCULOSKELETAL: No clubbing, cyanosis. NEURO: No focal or lateralizing signs. Cranial nerves 2 through 12 grossly within normal limits. PSYCH: Appropriate affect. Alert and oriented to person, place and time. SKIN: Good skin turgor. Well perfused. ASSESSMENT: 1. Morbid obesity due to excess calories 2. Body mass index of 48.0, initial to 32.2 3. Hypertensive heart disease. 4. Neuropathy 5. Gastroesophageal reflux disease 6. Generalized anxiety disorder 7. Hiatal hernia 8. History of gastric bypass 9. Chronic gastrojejunal ulceration with stricture 10. Hyperlipidemia. 11. Vitamin D deficiency 12. Secondary hyperparathyroidism. 13. Peritoneal adhesions. 14. Status post hiatal hernia repair PLAN: 1. Patient advised to follow up with primary care provider of uncontrolled hypertension. 2. Continue post-op bariatric diet. 3. Alternatives for blood pressure management includes adding annmarie to beverages as an anti-inflammatory and hypertensive agent. 4. May return to work after 4 weeks following surgery. Objective - Vital Signs Vital signs: Vital Signs Temp 98.2 F 11/01/21 10:24 Pulse 77 11/01/21 10:24 Resp 16 11/01/21 10:24 BP 170/90 11/01/21 10:24 Pulse Ox Intake & Output 10/31/21 11/01/21 11/01/21 18:59 06:59 18:59 Weight 95.98 kg Assessment/Plan Plan: Date: 11/01/21 Initial Weight: 142.882 kg Initial BMI: 47.9 Current Weight: 95.98 kg Current BMI: 32.1 Type of Surgery: Total Volume in Band: Previous Volume: Volume Removed: Volume Added: Band Size:
--- NOTE | 2021-11-01 11:06 | P.PN ---
Progress Note - Text Progress Note Date: 11/01/21 To whom it may concern: Mala Duncan is under my surgical care. She may return to work on November 07, 2021 with a 4 pound lifting restriction. She will been off restrictions November 11, 2021 restrictions. Regards, Aditi Cummings MD
== END ==
LOC: BARWHC3 10:07
PROVIDERS: ATTEND Surgery Plastic and Reconstructive Surgery
DX: E66.01 Morbid (severe) obesity due to excess calories (principal); I11.9 Hypertensive heart disease without heart failure; G62.9 Polyneuropathy, unspecified; K21.9 Gastro-esophageal reflux disease without esophagitis; F41.1 Generalized anxiety disorder; K44.9 Diaphragmatic hernia without obstruction or gangrene; K28.7 Chronic gastrojejunal ulcer without hemorrhage or perforation; E78.5 Hyperlipidemia, unspecified; E55.9 Vitamin D deficiency, unspecified; N25.81 Secondary hyperparathyroidism of renal origin; K66.0 Peritoneal adhesions (postprocedural) (postinfection); Z68.32 Body mass index [BMI] 32.0-32.9, adult; Z98.84 Bariatric surgery status; Z98.890 Other specified postprocedural states; Z79.899 Other long term (current) drug therapy; Z88.6 Allergy status to analgesic agent; Z91.030 Bee allergy status; Z88.5 Allergy status to narcotic agent; Z91.040 Latex allergy status; Z88.8 Allergy status to other drugs, medicaments and biological substances; Z88.0 Allergy status to penicillin
CPT/HCPCS: 99211

== ENCOUNTER 2022-03-19 18:04 | Emergency (ER) | payer BC ==
[2022-03-19 18:27] VITALS: BP 164/86; PULSE 102; RESP 18; TEMP 98.9
== END 2022-03-19 20:23 | disposition left against medical advice (07) ==
LOC: EC 18:04
DX: Z53.21 Procedure and treatment not carried out due to patient leaving prior to being seen by health care provider (principal)
CPT/HCPCS: 93005; 99499

== ENCOUNTER 2022-03-20 10:40 | Emergency (ER) | payer BC ==
[2022-03-20] MEDS ORDERED: MORPHINE SULFATE 4 MG/ML SYRINGE IVP STA ×2 (11:37→14:18)
[2022-03-20 12:25] LABS: Basophils % (A) 0 %; Eosinophils # (A) 0.4 k/uL (0-0.7); Eosinophils % (A) 4 %; HCT 41.8 % (34.0-46.0); HGB 13.1 gm/dL (11.4-16.0); Lymphocytes # (A) 1.8 k/uL (1.0-4.8); Lymphocytes % (A) 21 %; MCH 29.3 pg (25.0-35.0); MCHC 31.4 g/dL (31.0-37.0); MCV 93.3 fL (80.0-100.0); Mean Platelet Volume 7.5; Monocytes # (A) 0.4 k/uL (0-1.0); Monocytes % (A) 4 %; Neutrophils # (A) 5.7 k/uL (1.3-7.7); Neutrophils % (A) 68 %; Platelet Count 258 k/uL (150-450); RBC 4.48 m/uL (3.80-5.40); RDW 13.1 % (11.5-15.5); WBC 8.3 k/uL (3.8-10.6)
[2022-03-20 12:37] LABS: ALT 107 U/L (4-34); AST 201 U/L (14-36); African American GFR (CKD) >90 (>60 ml/min/1.73 sqM); Alkaline Phosphatase 258 U/L (38-126); Anion Gap 10 mmol/L; Blood Urea Nitrogen 11 mg/dL (7-17); Calcium 8.8 mg/dL (8.4-10.2); Carbon Dioxide 24 mmol/L (22-30); Chloride 104 mmol/L (98-107); Glucose 111 mg/dL (74-99); Non-African American GFR(CKD) >90 (>60 ml/min/1.73 sqM); Potassium 3.8 mmol/L (3.5-5.1); Sodium 138 mmol/L (137-145); Total Bilirubin 0.6 mg/dL (0.2-1.3); Total Protein 6.6 g/dL (6.3-8.2)
[2022-03-20 12:44] LABS: INR 0.9 (<1.2); Partial Thromboplastin Time 24.4 sec (22.0-30.0); Prothrombin Time 9.7 sec (9.0-12.0)
[2022-03-20 13:17] VITALS: RESP 18
--- NOTE | 2022-03-20 14:23 | ED ---
General Adult HPI - General Chief complaint: Chest Pain Stated complaint: chest pain Time Seen by Provider: 03/20/22 11:30 Source: patient, RN notes reviewed, old records reviewed Mode of arrival: ambulatory Limitations: no limitations - History of Present Illness Initial comments: Patient is a 56-year-old female with past medical history remarkable for hypertension, GERD who presents emergency Department complaining of chest pain. Has been ongoing for 2 weeks. States that it is located over the left side of her chest. Worse with movement of her left shoulder. Seems to be in the pectoral muscle region. States it also seems to around her left shoulder. Worse with movement. Denies any associated shortness of breath. Denies any associated pain with deep breaths in. Denies fevers, chills, cough. Denies any nausea, vomiting, abdominal pain. His no other acute complaints at this time. No cardiac history per patient. No history of blood clots. Presents for further evaluation at this time. Presented yesterday, however left without b eing seen. Symptoms have been ongoing for 2 weeks. - Related Data Home Medications Medication Instructions Recorded Confirmed EPINEPHrine [Epipen 2-Danilo] 0.3 mg IM ONCE PRN 10/14/17 03/20/22 Fluticasone Nasal [place] [Flonase 2 spr EA NOSTRIL DAILY 10/14/17 03/20/22 Nasal [place]] Gabapentin [Neurontin] 400 mg PO TID 10/14/17 03/20/22 amLODIPine [Norvasc] 10 mg PO DAILY 10/14/17 03/20/22 Metoprolol Tartrate [Lopressor] 50 mg PO BID 07/19/21 03/20/22 Nortriptyline [Pamelor] 25 mg PO HS 07/19/21 03/20/22 traMADol HCL [Ultram] 50 mg PO TID PRN 10/10/21 03/20/22 Estrogen,Con/M-Progest Acet 1 tab PO DAILY 03/20/22 03/20/22 [Prempro 0.3 mg-1.5 mg Tablet] Losartan/Hydrochlorothiazide 1 tab PO DAILY 03/20/22 03/20/22 [Losartan-Hctz 100-25 mg Tab] Multivitamins, Thera [Multivitamin 1 tab PO DAILY 03/20/22 03/20/22 (formulary)] Nystatin 100,000 Unit/gm Powd 1 applic TOPICAL BID PRN 03/20/22 03/20/22 [Mycostatin Powder] Previous Rx's Medication Instructions Recorded Omeprazole [PriLOSEC] 40 mg PO DAILY #90 cap 01/16/21 Lidocaine 5% Patch [Lidoderm 5% 1 patch TOPICAL DAILY PRN 7 Days 03/20/22 Patch] #7 patch methocarbamoL [Robaxin-750] 750 mg PO TID PRN 7 Days #21 tab 03/20/22 Allergies Allergy/AdvReac Type Severity Reaction Status Date / Time aspirin Allergy Rash/Hives Verified 03/20/22 13:49 bee pollen Allergy Anaphylaxis Verified 03/20/22 13:49 fluoxetine Allergy Rash/Hives Verified 03/20/22 13:49 hydrocodone [From Vicodin] Allergy Rash/Hives Verified 03/20/22 13:49 latex Allergy Rash/Hives Verified 03/20/22 13:49 lisinopril Allergy Unknown Verified 03/20/22 13:49 Penicillins Allergy Rash/Hives Verified 03/20/22 13:49 NSAIDS (Non-Steroidal AdvReac Bariatric Verified 03/20/22 13:49 Anti-Inflamma Surgery Review of Systems ROS Statement: Those systems with pertinent positive or pertinent negative responses have been documented in the HPI. Review of Systems: CONST: Denies fever EYES: Denies blurry vision ENT: Denies nasal congestion C/V: Endorses chest pain RESP: Denies shortness of breath GI: Denies abdominal pain : Denies dysuria SKIN: Denies rash. MSK: Denies joint pain. NEURO: Denies headache ROS Other: All systems not noted in ROS Statement are negative. 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", MIGRAINES, History of Any Multi-Drug Resistant Organisms: None Reported Past Surgical History: Bariatric Surgery, Cholecystectomy, Hernia Repair, Uterine Ablation Additional Past Surgical History / Comment(s): Woody-En-Y Gastric Bypass; Uterine Ablation, EGD, COLONOSCOPY Past Anesthesia/Blood Transfusion Reactions: No Reported Reaction Additional Past Anesthesia/Blood Transfusion Reaction / Comment(s): No family hx known Past Psychological History: Anxiety Smoking Status: Never smoker Past Alcohol Use History: Occasional Past Drug Use History: None Reported - Past Family History Mother History Unknown: Yes Additional Family Medical History / Comment(s): PT ADOPTED-FAMILY HX UNKNOWN General Exam - General Exam Comments Initial Comments: General: Appears in no acute distress. HEAD: Normal with no signs of head trauma. EYES: PERRLA, EOMI, conjunctiva normal, no discharge. ENT: Hearing grossly intact, normal oropharynx. RESPIRATORY: Clear breath sounds bilaterally. No wheezes, rales, or rhonchi. C/V: Regular rate and rhythm. S1 and S2 auscultated, no edema, peripheral pulses 2+ and intact throughout. Chest pain is reproducible on palpation. ABD: Abd is soft, nontender, nondistended EXT: Normal range of motion, no obvious deformity. Patient has reproducible chest pain on palpation over the left pectoral region that seems to radiate towards the anterior aspect of the left shoulder with movements of the shoulder. SKIN: No rashes or lesions observed on exposed skin. NEURO: Alert and oriented x 4. Cranial nerves II-XII intact. No focal sensory or strength deficits. Limitations: no limitations Course Vital Signs 03/20/22 03/20/22 03/20/22 10:43 12:15 12:18 Temperature 98.3 F 99.2 F Pulse Rate 68 69 Pulse Rate [ 56 L Pulse Oximetery ] Respiratory 18 16 Rate Blood Pressure 160/93 149/95 O2 Sat by Pulse 99 98 Oximetry 03/20/22 03/20/22 13:16 14:25 Temperature Pulse Rate 69 64 Pulse Rate [ Pulse Oximetery ] Respiratory 18 18 Rate Blood Pressure 157/90 148/97 O2 Sat by Pulse 97 97 Oximetry Medical Decision Making - Medical Decision Making Based on the patient's presentation and physical exam, I do believe she is pre senting with atypical chest pain. Rule out cardiopulmonary etiology at this time. Patient has an elevated BMI. She will be given analgesia, as well as obtain basic abdominal labs. She was in agreement this plan. Vital signs within normal limits. EKG shows no signs of acute ischemia. There are chronic changes seen on prior EKGs. Laboratory studies are remarkable for minimally elevated d-dimer of 0.66. Troponin is undetectable. She is mildly elevated LFTs, however no associated complaints. I discussed the elevated d-dimer with the patient. Patient's pain is improved following morphine administration. I would like to obtain a CT angiogram to rule out PE. She was in agreement this plan.Patient's CT angiogram revealed no PE. CAD present. Very small pericardial effusion. Hepatic steatosis. Nonobstructive left-sided renal calculus status post Woody-en-Y. I discussed the findings with the patient. Symptoms are improved and nearly resolved at this time. I did discuss that with her chest wall pain, as well as negative cardiopulmonary workup, I do believe it is safer to be discharged home with close follow-up with her PCP as well as cardiology outpatient. She was in agreement this plan. She will be given analgesia medications for home. Strict return precautions were discussed. Patient Heart score is low at 3. I will provide the patient with a prescription for Robaxin, lidocaine patches. I instructed the patient to follow up with their PCP in the next 1-3 days. I explained that the patient should return to the emergency department if they experience any worsening symptoms. Strict return precautions were discussed with the patient. The patient expressed understanding of these instructions. I answered all questions that the patient had. The patient was discharged home in good condition with their prescriptions and follow up information. - Lab Data Result diagrams: 03/20/22 12:14 03/20/22 12:14 Lab Results 03/20/22 03/20/22 03/20/22 Range/Units 12:14 12:14 12:14 WBC 8.3 (3.8-10.6) k/uL RBC 4.48 (3.80-5.40) m/uL Hgb 13.1 (11.4-16.0) gm/dL Hct 41.8 (34.0-46.0) % MCV 93.3 (80.0-100.0) fL MCH 29.3 (25.0-35.0) pg MCHC 31.4 (31.0-37.0) g/dL RDW 13.1 (11.5-15.5) % Plt Count 258 (150-450) k/uL MPV 7.5 Neutrophils % 68 % Lymphocytes % 21 % Monocytes % 4 % Eosinophils % 4 % Basophils % 0 % Neutrophils # 5.7 (1.3-7.7) k/uL Lymphocytes # 1.8 (1.0-4.8) k/uL Monocytes # 0.4 (0-1.0) k/uL Eosinophils # 0.4 (0-0.7) k/uL Basophils # 0.0 (0-0.2) k/uL PT 9.7 (9.0-12.0) sec INR 0.9 (<1.2) APTT 24.4 (22.0-30.0) sec D-Dimer (<0.60) mg/L FEU Sodium 138 (137-145) mmol/L Potassium 3.8 (3.5-5.1) mmol/L Chloride 104 (98-107) mmol/L Carbon Dioxide 24 (22-30) mmol/L Anion Gap 10 mmol/L BUN 11 (7-17) mg/dL Creatinine 0.62 (0.52-1.04) mg/dL Est GFR (CKD-EPI)AfAm >90 (>60 ml/min/1.73 sqM) Est GFR (CKD-EPI)NonAf >90 (>60 ml/min/1.73 sqM) Glucose 111 H (74-99) mg/dL Calcium 8.8 (8.4-10.2) mg/dL Magnesium 2.0 (1.6-2.3) mg/dL Total Bilirubin 0.6 (0.2-1.3) mg/dL AST 201 H (14-36) U/L ALT 107 H (4-34) U/L Alkaline Phosphatase 258 H (38-126) U/L Troponin I (0.000-0.034) ng/mL Total Protein 6.6 (6.3-8.2) g/dL Albumin 4.0 (3.5-5.0) g/dL 03/20/22 03/20/22 Range/Units 12:14 12:14 WBC (3.8-10.6) k/uL RBC (3.80-5.40) m/uL Hgb (11.4-16.0) gm/dL Hct (34.0-46.0) % MCV (80.0-100.0) fL MCH (25.0-35.0) pg MCHC (31.0-37.0) g/dL RDW (11.5-15.5) % Plt Count (150-450) k/uL MPV Neutrophils % % Lymphocytes % % Monocytes % % Eosinophils % % Basophils % % Neutrophils # (1.3-7.7) k/uL Lymphocytes # (1.0-4.8) k/uL Monocytes # (0-1.0) k/uL Eosinophils # (0-0.7) k/uL Basophils # (0-0.2) k/uL PT (9.0-12.0) sec INR (<1.2) APTT (22.0-30.0) sec D-Dimer 0.66 H (<0.60) mg/L FEU Sodium (137-145) mmol/L Potassium (3.5-5.1) mmol/L Chloride (98-107) mmol/L Carbon Dioxide (22-30) mmol/L Anion Gap mmol/L BUN (7-17) mg/dL Creatinine (0.52-1.04) mg/dL Est GFR (CKD-EPI)AfAm (>60 ml/min/1.73 sqM) Est GFR (CKD-EPI)NonAf (>60 ml/min/1.73 sqM) Glucose (74-99) mg/dL Calcium (8.4-10.2) mg/dL Magnesium (1.6-2.3) mg/dL Total Bilirubin (0.2-1.3) mg/dL AST (14-36) U/L ALT (4-34) U/L Alkaline Phosphatase (38-126) U/L Troponin I <0.012 (0.000-0.034) ng/mL Total Protein (6.3-8.2) g/dL Albumin (3.5-5.0) g/dL - EKG Data -: EKG Interpreted by Me EKG Comments: 12-lead Electrocardiogram Interpretation Note EKG was reviewed and interpreted by myself. 12-lead ECG performed at 1048 is interpreted by me as revealing normal sinus rhythm at a rate of 66 beats per minute. [place] is normal. VT interval is 167 ms, QRS duration is 86 ms, QTc is 423 ms.. There were no acute ST or T wave abnormalities to suggest myocardial ischemia or injury. There are chronic T wave inversions located in III, aVF, as well as the anterior precordial leads. Similar to EKG from September 2020. R wave progression across the precordium was satisfactory. By my interpretation this EKG is non-diagnostic for acute ischemia. Disposition Clinical Impression: Chest wall pain Disposition: HOME SELF-CARE Condition: Good Instructions (If sedation given, give patient instructions): Chest Pain (ED), Chest Wall Pain (ED) Prescriptions: Lidocaine 5% Patch [Lidoderm 5% Patch] 1 patch TOPICAL DAILY PRN 7 Days #7 patch PRN Reason: Pain methocarbamoL [Robaxin-750] 750 mg PO TID PRN 7 Days #21 tab PRN Reason: Pain Is patient prescribed a controlled substance at d/c from ED?: No Referrals: Chidi Mast DO [Primary Care Provider] - 1-2 days Time of Disposition: 14:25
--- NOTE | 2022-03-20 14:24 | CT ---
EXAMINATION TYPE: CT chest angio for PE DATE OF EXAM: 03/20/2022 COMPARISON: Radiographs 12/19/2015 HISTORY: 56-year-old female elevated d-dimer, concern for PE, chest pain TECHNIQUE: Contiguous axial scanning of the chest performed with IV Contrast, patient injected with 7 2cc mL of Isovue 370. Coronal/sagittal MIP reconstructions performed. CT DLP: 409 mGycm Automated exposure control for dose reduction was used. FINDINGS: Heart normal size with small pericardial effusion anteriorly measuring up to 6 mm thick. No flattenin g of the interventricular septum reflux of contrast into the hepatic veins. Scattered mild LAD and RC A coronary calcifications are present. Aorta normal caliber with a bovine configuration to the aortic arch. No thoracic lymphadenopathy by CT size criteria. Satisfactory opacification of the pulmonary arterial system but with some breathing motion artifact i n the lower lungs. This limits assessment of some of the segmental and more distal branches of the ba silar lower lobes. No definite pulmonary embolus is seen. Strandy scarring or atelectasis in the lower lungs. Mild diffuse bronchial wall thickening is noted n o consolidation or pleural effusion. Low attenuation of the hepatic parenchyma compatible with fatty infiltration. Cholecystectomy clips. Postsurgical change of Woody-en-Y gastric bypass. 7 mm nonobstructive left renal calculus. Bones: Scattered mild degenerative disc disease. IMPRESSION: 1. SOME BREATHING MOTION ARTIFACT. NO DEFINITE PULMONARY EMBOLUS. 2. CAD WITH LAD AND RCA CORONARY ARTERY CALCIFICATIONS. 3. SMALL ANTERIOR PERICARDIAL EFFUSION measuring 6 mm thick. 4. Strandy scarring or atelectasis in the lower lungs. Mild diffuse bronchial wall thickening could r eflect bronchitis or chronic asthma. 5. Hepatic steatosis. Correlate with LFTs, lipid profile, and patient risk factors. 6. A 7 mm nonobstructive left renal calculus. Status post Woody-en-Y gastric bypass.
[2022-03-20 14:26] VITALS: BP 148/97; PULSE 64
[2022-03-20] MEDS ORDERED: ACET/COD 300 MG/30 MG STARTER PACK 6 TAB BTL PO STA (14:40)
[2022-03-20 14:55] VITALS: TEMP 99.1
== END 2022-03-20 14:57 | disposition home or self-care (01) ==
LOC: EC 10:40
DX: R07.89 Other chest pain (principal); K21.9 Gastro-esophageal reflux disease without esophagitis; I10 Essential (primary) hypertension; F41.9 Anxiety disorder, unspecified; Z88.6 Allergy status to analgesic agent; Z91.030 Bee allergy status; Z88.8 Allergy status to other drugs, medicaments and biological substances; Z88.0 Allergy status to penicillin; Z79.899 Other long term (current) drug therapy
CPT/HCPCS: 36415; 93005; 85379; 80053; 83735; 84484; 85025; 85610; 85730; 71275; 99285; 96374; 96376; J2270; Q9967

== ENCOUNTER → 2022-06-13 | Outpatient (CLI) | payer BC ==
--- NOTE | 2022-06-13 10:03 | MM ---
Reason for Exam: Clinical finding. Patient History: Menarche at age 9. First Full-Term at age 17. Postmenopausal. Mother had breast cancer at or over age 50. Risk Values: Thao 5 year model risk: 2.5%. NCI Lifetime model risk: 15.7%. Prior Study Comparison: No prior studies available for comparison. Tissue Density: There are scattered fibroglandular densities. Findings: Analyzed By CAD. There are a few scattered benign-appearing round calcifications throughout the bilateral breasts. There is 6 mm round slightly lobulated mass in the posterior upper outer aspect left breast possible lymph node. Overall Assessment: Benign, BI-RAD 2 Management: Diagnostic Breast Ultrasound of the left breast. Ultrasound left breast due to left-sided pain.. Results were given to the patient verbally at the time of exam. Electronically signed and approved by: Parvez Gomes M.D.
--- NOTE | 2022-06-13 10:37 | USB ---
Reason for Exam: Clinical finding. Patient History: Menarche at age 9. First Full-Term at age 17. Postmenopausal. Mother had breast cancer at or over age 50. Risk Values: Thao 5 year model risk: 2.5%. NCI Lifetime model risk: 15.7%. Findings: The lateral section of the breast of the left breast, the axilla of the left breast and the retroareolar of the left breast were scanned. Targeted ultrasound left breast shows benign 7 mm lymph node 2:00 position 18 cm distance from nipple corresponding to mammogram abnormality. No additional solid or cystic mass or fluid collection is seen on targeted ultrasound. Overall Assessment: Benign, BI-RAD 2 Management: Screening Mammogram of both breasts in 1 year. Manage patient's pain on clinical basis. Return to routine follow-up. Results were given to the patient verbally at the time of exam. Electronically signed and approved by: Parvez Gomes M.D.
== END | disposition home or self-care (01) ==
LOC: RADMAMWWP 09:25
PROVIDERS: ATTEND Family Medicine
DX: N64.4 Mastodynia (principal); Z78.0 Asymptomatic menopausal state; Z80.3 Family history of malignant neoplasm of breast
CPT/HCPCS: 77062; 77066

== ENCOUNTER → 2022-07-18 | Outpatient (CLI) | payer BC ==
[2022-07-18 19:20] LABS: Basophils # (A) 0.05 X 10*3/uL (0.00-0.10); Basophils % (A) 0.9 %; Eosinophils # (A) 0.19 X 10*3/uL (0.04-0.35); Eosinophils % (A) 3.4 %; HGB 13.2 g/dL (12.0-15.0); Immature Grans, Automated 0.5 %; Lymphocytes # (A) 2.26 X 10*3/uL (0.90-5.00); Lymphocytes % (A) 40.5 %; MCH 28.3 pg (27.0-32.0); MCV 94.4 fL (80.0-97.0); Mean Platelet Volume 10.2 fL (9.5-12.2); Monocytes % (A) 7.2 %; NRBC Per 100 WBC 0 /100 WBCS (0.0-0.0); Neutrophils # (A) 2.65 X 10*3/uL (1.80-7.70); Neutrophils % (A) 47.5 %; Platelet Count 233 X 10*3/uL (140-440); RBC 4.66 X 10*6/uL (4.10-5.20); RDW 13.3 % (11.5-14.5); WBC 5.58 X 10*3/uL (4.50-10.00)
== END | disposition home or self-care (01) ==
LOC: LABWHC1 10:31
PROVIDERS: ATTEND Nurse Practitioner Family
DX: Z00.00 Encounter for general adult medical examination without abnormal findings (principal); K90.9 Intestinal malabsorption, unspecified; R53.83 Other fatigue
CPT/HCPCS: 36415; 80053; 80061; 82550; 82607; 82746; 83540; 83735; 84439; 84443; 85025

== ENCOUNTER → 2022-08-01 | Outpatient (CLI) | payer BC ==
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
== END ==
LOC: WWCWWP 11:46
PROVIDERS: ATTEND Surgery
DX: Z85.3 Personal history of malignant neoplasm of breast (principal); I10 Essential (primary) hypertension; F41.9 Anxiety disorder, unspecified; M54.9 Dorsalgia, unspecified; G43.909 Migraine, unspecified, not intractable, without status migrainosus; F32.A Depression, unspecified; N60.12 Diffuse cystic mastopathy of left breast; Z88.6 Allergy status to analgesic agent; Z91.030 Bee allergy status; Z88.5 Allergy status to narcotic agent; Z88.8 Allergy status to other drugs, medicaments and biological substances; Z88.0 Allergy status to penicillin

== ENCOUNTER → 2023-01-13 | Outpatient (CLI) | payer BC ==
[2023-01-13 16:44] LABS: HCT 44.4 % (37.2-46.3); HGB 14.4 d/dL (12.0-15.0); MCH 28.9 pg (27.0-32.0); MCHC 32.4 d/dL (32.0-37.0); Mean Platelet Volume 9.8 FL (9.5-12.2); NRBC Per 100 WBC 0 X 10*3/uL (0.00-0.01); Platelet Count 338 X 10*3/uL (140-440); RBC 4.99 X 10*6/uL (4.10-5.20); RDW 12.8 % (11.5-14.5); WBC 5.57 X 10*3/uL (4.50-10.00)
[2023-01-13 17:45] LABS: ALT 28 U/L (8-44); AST 47 U/L (13-35); Albumin 4.4 d/dL (3.8-4.9); Albumin/Globulin Ratio 1.42 Ratio (1.60-3.17); Alkaline Phosphatase 144 U/L (41-126); BUN/Creat Ratio 14.86 Ratio (12.00-20.00); Blood Urea Nitrogen 10.4 mg/dL (9.0-27.0); Calcium 9.9 mg/dL (8.7-10.3); Carbon Dioxide 24.3 mmol/L (21.6-31.8); Chloride 100 mmol/L (96-109); Globulin 3.1 d/dL (1.6-3.3); Glucose 123 mg/dL (70-110); LDL Cholesterol,Calculated 85.7 mg/dL (0.0-131.0); Potassium 4.3 mmol/L (3.5-5.5); Sodium 139 mmol/L (135-145); Total Bilirubin 0.9 mg/dL (0.3-1.2); Total Protein 7.5 d/dL (6.2-8.2)
== END | disposition home or self-care (01) ==
LOC: LABWHC1 11:47
PROVIDERS: ATTEND Family Medicine
DX: Z13.220 Encounter for screening for lipoid disorders (principal); I10 Essential (primary) hypertension; D57.3 Sickle-cell trait
CPT/HCPCS: 36415; 80053; 80061; 83036; 84443; 85027; 85660

== ENCOUNTER → 2023-04-03 | Outpatient (CLI) | payer BC ==
--- NOTE | 2023-04-07 20:19 | USB ---
Reason for Exam: Clinical finding. Patient History: Menarche at age 9. First Full-Term at age 17. Postmenopausal. Mother had breast cancer at or over age 50. Risk Values: Thao 5 year model risk: 2.2%. NCI Lifetime model risk: 11.7%. Technique: Method: Targeted. Prior Study Comparison: 06/13/2022 Bilateral MG 3D diag mammo w/cad [facility]. Findings: The lateral section of the breast of the left breast, the axilla of the left breast and the retroareolar of the left breast were scanned. Targeted ultrasound lateral half of the left breast 12:00 to 6:00 including the subareolar region and axilla. The previous small 7 mm nodule at the 2:00 position is no longer identified. No other solid or cystic lesion or axillary lymphadenopathy. Overall Assessment: Benign, BI-RAD 2 Management: Screening Mammogram of both breasts in 3 months. Further clinical management of patient's left breast pain. A clinical breast exam by your physician is recommended on an annual basis and results should be correlated with mammographic findings. This exam should not preclude additional follow-up of suspicious palpable abnormalities. Results were given to the patient verbally at the time of exam. Electronically signed and approved by: Salvador Jordan M.D. Radiologist
== END | disposition home or self-care (01) ==
LOC: RADMAMWWP 09:00
PROVIDERS: ATTEND Surgery
DX: N64.4 Mastodynia (principal); Z78.0 Asymptomatic menopausal state; Z80.3 Family history of malignant neoplasm of breast

== ENCOUNTER → 2023-09-11 | Outpatient (CLI) | payer BC ==
--- NOTE | 2023-09-14 20:17 | MM ---
Reason for Exam: Screening (asymptomatic). Last mammogram was performed 1 year(s) and 3 month(s) ago. Patient History: Menarche at age 9. First Full-Term at age 17. Postmenopausal. Mother had breast cancer, age 50. Risk Values: Thao 5 year model risk: 2.3%. NCI Lifetime model risk: 11.4%. Prior Study Comparison: 06/13/2022 Bilateral MG 3D diag mammo w/cad [facility], [facility]. 04/03/2023 Left MG 3D diag mammo w/cad [facility], [facility]. Tissue Density: There are scattered areas of fibroglandular density. Findings: Analyzed By CAD. There is chronic nodularity on the left. Benign bilateral oil cysts are noted. There is no suspicious group of microcalcifications or new suspicious mass in either breast. Overall Assessment: Benign, BI-RAD 2 Management: Screening Mammogram of both breasts in 1 year. Further clinical management of patient's left breast pain. Patient should continue monthly self-breast exams. A clinical breast exam by your physician is recommended on an annual basis. This exam should not preclude additional follow-up of suspicious palpable abnormalities. Note on Thao scores and lifetime risk: 1. A Thao score greater than 3% is considered moderate risk. If this is the case, consider specialist referral to assess eligibility for a risk reducing agent. 2. If overall lifetime risk for the development of breast cancer is 20% or higher, the patient may qualify for future screening with alternating mammogram and breast MRI. Electronically signed and approved by: Salvador Jordan M.D. Radiologist
== END | disposition home or self-care (01) ==
LOC: RADMAMWWP 13:09
PROVIDERS: ATTEND Surgery
DX: Z12.31 Encounter for screening mammogram for malignant neoplasm of breast (principal); Z78.0 Asymptomatic menopausal state; Z80.3 Family history of malignant neoplasm of breast
CPT/HCPCS: 77067

== ENCOUNTER → 2023-09-17 | Outpatient (CLI) | payer BC ==
[2023-09-17 14:11] LABS: INR 0.9 (<1.2); Partial Thromboplastin Time 23.2 sec (22.0-30.0); Prothrombin Time 10.5 sec (10.0-12.5)
[2023-09-17 18:03] LABS: HCT 47.9 % (37.2-46.3); HGB 15.1 g/dL (12.0-15.0); MCH 27.8 pg (27.0-32.0); MCHC 31.5 g/dL (32.0-37.0); MCV 88.1 FL (80.0-97.0); Mean Platelet Volume 9.7 FL (9.5-12.2); NRBC Per 100 WBC 0 X 10*3/uL (0.00-0.01); Platelet Count 296 X 10*3/uL (140-440); RBC 5.44 X 10*6/uL (4.10-5.20); RDW 12.9 % (11.5-14.5); WBC 6.51 X 10*3/uL (4.50-10.00)
== END | disposition home or self-care (01) ==
LOC: LABWHC1 12:52
PROVIDERS: ATTEND Family Medicine
DX: E89.1 Postprocedural hypoinsulinemia (principal); E66.01 Morbid (severe) obesity due to excess calories; D50.8 Other iron deficiency anemias; E44.0 Moderate protein-calorie malnutrition; E44.1 Mild protein-calorie malnutrition; E45 Retarded development following protein-calorie malnutrition; E55.9 Vitamin D deficiency, unspecified; K74.1 Hepatic sclerosis; N19 Unspecified kidney failure; T56.894A Toxic effect of other metals, undetermined, initial encounter; K50.90 Crohn's disease, unspecified, without complications
CPT/HCPCS: 36415; 82746; 83036; 85027; 85610; 85730

== ENCOUNTER → 2023-10-01 | Day surgery (SDC) | payer BC ==
[2023-09-30 10:19] VITALS: BMI 30.4
[~2023-10-01] MED LIST changes: -CHLORHEXIDINE GLUCONATE 15 ML CUP MUCOUS MEM PRN; -DEXAMETHASONE SOD PHOSPHATE 4 MG/ML 1 ML VIAL IV ONE; -ENOXAPARIN 40 MG/0.4 ML SYRINGE SQ PRN; +LIDOCAINE 1% INJ 10MG/ML (20 ML MDV) ONE; -MIDAZOLAM 2 MG/2 ML VIAL IV PRN; -ONDANSETRON 4 MG/2 ML VIAL IVP ONE; -PANTOPRAZOLE 40 MG/10 ML VIAL IVP PRN; +PROPOFOL 10 MG/ML 20 ML VIAL IV ONE; -SCOPOLAMINE 1 MG/72 HR PATCH TRANSDERM ONE; +fentaNYL (PF) 50 MCG/ML 2 ML AMP ONE
--- NOTE | 2023-10-01 07:42 | P.GSHP ---
History of Present Illness H&P Date: 10/01/23 CHIEF COMPLAINT: GERD and colon screen HISTORY OF PRESENT ILLNESS: The patient is a 58-year-old female who presents with gastroesophageal reflux disease and need for colon screen. Upper and lower endoscopy were offered for further evaluation and management. PAST MEDICAL HISTORY: Please see list. PAST SURGICAL HISTORY: Please see list. MEDICATIONS: Please see list. ALLERGIES: Please see list. SOCIAL HISTORY: No illicit drug use FAMILY HISTORY: No reports of Crohn disease or ulcerative colitis. REVIEW OF ORGAN SYSTEMS: CONSTITUTIONAL: No reports of fevers or chills. GI: Denies any blood in stools or constipation. PHYSICAL EXAM: VITAL SIGNS: Stable GENERAL: Well-developed pleasant in no acute distress. HEENT: No scleral icterus. Extraocular movements grossly intact. Moist buccal mucosa. NECK: Supple without lymphadenopathy. CHEST: Unlabored respirations. Equal bilateral excursions. CARDIOVASCULAR: Regular rate and rhythm. Distal 2+ pulses. ABDOMEN: Soft, nondistended. MUSCULOSKELETAL: No clubbing, cyanosis, or edema. ASSESSMENT: 1. Gastroesophageal reflux disease 2. Colon screen. PLAN: 1. 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", MIGRAINES, BILAT CARPAL TUNNEL History of Any Multi-Drug Resistant Organisms: None Reported Past Surgical History: Bariatric Surgery, Cholecystectomy, Hernia Repair, Uterine Ablation Additional Past Surgical History / Comment(s): Woody-En-Y Gastric Bypass; Uterine Ablation, EGD, Past Anesthesia/Blood Transfusion Reactions: No Reported Reaction Additional Past Anesthesia/Blood Transfusion Reaction / Comment(s): No family hx known Smoking Status: Never smoker - Past Family History Mother History Unknown: Yes Family Medical History: Cancer Additional Family Medical History / Comment(s): PT ADOPTED-FAMILY HX UNKNOWN Medications and Allergies Home Medications Medication Instructions Recorded Confirmed Type EPINEPHrine [Epipen 2-Danilo] 0.3 mg IM ONCE PRN 10/14/17 09/30/23 History Fluticasone Nasal [place] [Flonase 2 spr EA NOSTRIL DAILY PRN 10/14/17 09/30/23 History Nasal [place]] Gabapentin [Neurontin] 400 mg PO TID 10/14/17 09/30/23 History amLODIPine [Norvasc] 10 mg PO DAILY 10/14/17 09/30/23 History Metoprolol Tartrate [Lopressor] 50 mg PO BID 07/19/21 09/30/23 History Nortriptyline [Pamelor] 25 mg PO HS 07/19/21 09/30/23 History Losartan/Hydrochlorothiazide 1 tab PO DAILY 03/20/22 09/30/23 History [Losartan-Hctz 100-25 mg Tab] Multivitamins, Thera [Multivitamin 1 tab PO DAILY 03/20/22 09/30/23 History (formulary)] Nystatin 100,000 Unit/gm Powd 1 applic TOPICAL BID PRN 03/20/22 09/30/23 History [Mycostatin Powder] methocarbamoL [Robaxin-750] 750 mg PO TID PRN 7 Days #21 tab 03/20/22 09/30/23 Rx Ergocalciferol (Vitamin D2) 1,250 mcg PO COPELAND 08/15/22 09/30/23 History [Drisdol (50,000 Iu)] Pantoprazole Sodium [Protonix] 40 mg PO DAILY 08/15/22 09/30/23 History Allergies Allergy/AdvReac Type Severity Reaction Status Date / Time aspirin Allergy Rash/Hives Verified 09/30/23 09:50 bee pollen Allergy Anaphylaxis Verified 09/30/23 09:50 fluoxetine Allergy Rash/Hives Verified 09/30/23 09:50 hydrocodone [From Vicodin] Allergy Rash/Hives Verified 09/30/23 09:50 latex Allergy Rash/Hives Verified 09/30/23 09:50 lisinopril Allergy Unknown Verified 09/30/23 09:50 Penicillins Allergy Rash/Hives Verified 09/30/23 09:50 NSAIDS (Non-Steroidal AdvReac Bariatric Verified 09/30/23 09:50 Anti-Inflamma Surgery
[2023-10-01 08:41] VITALS: RESP 16; TEMP 96.8
[2023-10-01] MEDS: LACTATED RINGERS 1,000 ML IV SCH (08:42)
[2023-10-01 09:56] VITALS: BP 117/56; PULSE 80
--- NOTE | 2023-10-01 10:06 | P.PCN ---
Date of Procedure: 10/01/23 Description of Procedure: PREOPERATIVE DIAGNOSIS: Colonoscopy screening. Family history gastrointestinal malignancy POSTOPERATIVE DIAGNOSIS: Colonoscopy screening. OPERATION: Colonoscopy to the cecum, ileocecal valve and appendiceal orifice. SURGEON: Aditi Cummings MD. ANESTHESIA: MAC. INDICATIONS: The patient is a 58-year-old female who presents for colonoscopy screening. Benefits and risks were described and informed consent was obtained. DESCRIPTION OF PROCEDURE: The patient had undergone Sutab prep. The patient had been brought into the operating room and laid in the left lateral decubitus position. After adequate intravenous sedation, the rectum was examined with 2% lidocaine jelly. No external hemorrhoids were encountered. The rectal tone was within normal limits. No lesions were palpated in the rectal vault. An Olympus colonoscope was advanced until the cecum, ileocecal valve and appendiceal orifice were clearly viewed. The prep was excellent. No scattered diverticulosis was encountered. No colonic polyps were found. No evidence of focal colitis was found. Retroflexion of the scope demonstrated grade 1 internal hemorrhoids without active bleeding or inflammation. The colon was desufflated. The patient had tolerated the procedure well. Withdrawal time was over 6 minutes. FINDINGS: Aronchick preparation quality scale 1 (1-5) Internal hemorrhoids, grade 1 No external prolapsed hemorrhoids. No arteriovenous malformations. No adenomatous polyps. No focal colitis. No sigmoid diverticulosis RECOMMENDATIONS: Lower endoscopy in 5 years, 2028 Plan - Discharge Summary Discharge Rx Participant: No New Discharge Prescriptions: Continue amLODIPine [Norvasc] 10 mg PO DAILY Gabapentin [Neurontin] 400 mg PO TID Fluticasone Nasal [place] [Flonase Nasal [place]] 2 spr EA NOSTRIL DAILY PRN PRN Reason: Allergy Symptoms EPINEPHrine [Epipen 2-Danilo] 0.3 mg IM ONCE PRN PRN Reason: Anaphylaxis Losartan/Hydrochlorothiazide [Losartan-Hctz 100-25 mg Tab] 1 tab PO DAILY Nystatin 100,000 Unit/gm Powd [Mycostatin Powder] 1 applic TOPICAL BID PRN PRN Reason: rash/itching Pantoprazole Sodium [Protonix] 40 mg PO DAILY Ergocalciferol (Vitamin D2) [Drisdol (50,000 Iu)] 1,250 mcg PO COPELAND Metoprolol Tartrate [Lopressor] 50 mg PO BID Nortriptyline [Pamelor] 25 mg PO HS Multivitamins, Thera [Multivitamin (formulary)] 1 tab PO DAILY methocarbamoL [Robaxin-750] 750 mg PO TID PRN 7 Days #21 tab PRN Reason: Pain Discharge Medication List EPINEPHrine [Epipen 2-Danilo] 0.3 mg IM ONCE PRN 10/14/17 [History] Fluticasone Nasal [place] [Flonase Nasal [place]] 2 spr EA NOSTRIL DAILY PRN 10/14/17 [History] Gabapentin [Neurontin] 400 mg PO TID 10/14/17 [History] amLODIPine [Norvasc] 10 mg PO DAILY 10/14/17 [History] Metoprolol Tartrate [Lopressor] 50 mg PO BID 07/19/21 [History] Nortriptyline [Pamelor] 25 mg PO HS 07/19/21 [History] Losartan/Hydrochlorothiazide [Losartan-Hctz 100-25 mg Tab] 1 tab PO DAILY 03/20/22 [History] Multivitamins, Thera [Multivitamin (formulary)] 1 tab PO DAILY 03/20/22 [History] Nystatin 100,000 Unit/gm Powd [Mycostatin Powder] 1 applic TOPICAL BID PRN 03/20/22 [History] methocarbamoL [Robaxin-750] 750 mg PO TID PRN 7 Days #21 tab 03/20/22 [Rx] Ergocalciferol (Vitamin D2) [Drisdol (50,000 Iu)] 1,250 mcg PO COPELAND 08/15/22 [History] Pantoprazole Sodium [Protonix] 40 mg PO DAILY 08/15/22 [History] [facility] [place] [place] [place]21[facility]23 2:00 pm Patient Instructions/Handouts: Moderate Sedation (DC) Activity/Diet/Wound Care/Special Instructions: Repeat colonoscopy 5 years, 2028 Discharge Disposition: HOME SELF-CARE
--- NOTE | 2023-10-01 10:07 | P.PCN ---
Date of Procedure: 10/01/23 Description of Procedure: PREOPERATIVE DIAGNOSES: 1. Gastroesophageal reflux disease 2. History of diaphragmatic hiatal hernia status postrepair 3. History of gastric bypass 4. Epigastric abdominal pain POSTOPERATIVE DIAGNOSES: 1. Gastroesophageal reflux disease 2. History of diaphragmatic hiatal hernia status postrepair 3. History of gastric bypass 4. Epigastric abdominal pain PROCEDURE PERFORMED: Esophagogastrojejunoscopy. SURGEON: Aditi Cummings MD ANESTHESIA: MAC. INDICATIONS: The patient is a 58-year-old female with prior history of Woody-en-Y gastric bypass approximately 8 to 10 years ago. In the last several weeks, she has had intermittent nausea and vomiting, particularly of the epigastric abdominal pain. With history of Woody-en-Y gastric bypass, upper endoscopy was offered for further evaluation and management. DESCRIPTION: Patient was brought to the endoscopy suite and laid in the left lateral decubitus position. After adequate IV sedation, a bite block was placed. An Olympus gastroscope was passed along the posterior oropharynx down to the distal esophagus where the squamocolumnar junction was found at approximately 38 cm from the incisors. The anastomosis was found at 43 cm, consistent with approximately 5 cm gastric pouch. The scope was advanced 60 cm from the incisors. No evidence of foreign body was found. No evidence of active gastrojejunal ulcerations were encountered. The GI tract was desufflated. The patient tolerated the procedure well. FINDINGS: 1. No acute gastrojejunal ulceration. 2. No foreign body found along the anastomosis. PLAN: 1. Recommend upper endoscopy as needed. 2. May benefit from additional studies with history of epigastric abdominal pain such as upper GI barium study.
== END | disposition home or self-care (01) ==
LOC: ORWHC2ENDO 07:51
PROVIDERS: ATTEND Surgery Plastic and Reconstructive Surgery
DX: Z12.11 Encounter for screening for malignant neoplasm of colon (principal); K64.0 First degree hemorrhoids; I10 Essential (primary) hypertension; K21.9 Gastro-esophageal reflux disease without esophagitis; Z79.899 Other long term (current) drug therapy; Z80.0 Family history of malignant neoplasm of digestive organs; Z88.0 Allergy status to penicillin; Z88.5 Allergy status to narcotic agent; Z88.6 Allergy status to analgesic agent; Z88.8 Allergy status to other drugs, medicaments and biological substances; Z90.49 Acquired absence of other specified parts of digestive tract; Z91.030 Bee allergy status; Z91.040 Latex allergy status; Z98.84 Bariatric surgery status
CPT/HCPCS: 45378; 43235; J2001; J3010; J2704

== ENCOUNTER → 2023-10-22 | Outpatient (CLI) | payer BC ==
--- NOTE | 2023-10-22 12:02 | FL ---
EXAMINATION TYPE: FL barium swallow DATE OF EXAM: 10/22/2023 CLINICAL INDICATION: 58-year-old female history of previous Woody-en-Y gastric bypass and hiatal herni a appeared. Dysphagia to solids and liquids. COMPARISON: None Total Fluoroscopy Time: 1 minute 51 seconds DAP: 382.54 mGym2 56 images obtained. FINDINGS: Hypopharyngeal anatomy is maintained. There is intermittent slight sluggish epiglottic inversion on s maller swallows. The cervical and thoracic portions have a normal course and caliber and normal motility. Alignment for the single contrast technique, no obvious mucosal abnormality or abnormal filling defec t is identified. No hiatal hernia. There is prompt passage of contrast into the proximal stomach and across the gastrojejunostomy. IMPRESSION: 1. Intermittent slight sluggish epiglottic inversion on smaller swallows. Normal appearance with larg er swallows. Questionable clinical significance. 2. Otherwise, unremarkable single contrast esophagram. No hiatal hernia. Patient status post Woody-en- Y gastric bypass.
== END | disposition home or self-care (01) ==
LOC: RADUSWWP 09:38
PROVIDERS: ATTEND Surgery Plastic and Reconstructive Surgery
DX: K21.9 Gastro-esophageal reflux disease without esophagitis (principal); Z98.84 Bariatric surgery status
CPT/HCPCS: 74220

== ENCOUNTER → 2023-11-27 | Outpatient (CLI) | payer BC ==
--- NOTE | 2023-11-27 13:23 | CT ---
EXAMINATION TYPE: CT left knee - [facility] Protocol CT DLP: 863 mGycm, Automated exposure control for dose reduction was used. DATE OF EXAM: 11/27/2023 1:00 PM COMPARISON: . None CLINICAL INDICATION:Female, 58 years old with history of M25.562 PAIN IN LEFT KNEE; [facility], [facility] TECHNIQUE: Axial images were obtained of the CT left knee - [facility] Protocol, Additional coronal and sag ittal reformatted images and soft tissue and bone window were obtained for review. Contrast used: mL of , (None if empty) Oral contrast used: (None if empty) FINDINGS: The visualized portion of the hips demonstrate mild osteoarthrosis changes with osteophyte formation of the acetabulum. No acute intrapelvic process. The bony structures of the pelvis are inta ct. The visualized knee demonstrates osteophyte formation of the tibial plateau, the patella and femoral condyles. There is joint space narrowing and subchondral sclerosis. No evidence of fracture. There i s a calcified joint body posterior to the medial knee joint measuring up to 3 mm. Visualized ankle demonstrates multifocal osteoarthrosis changes with mild osteophyte formation and mi ld joint space narrowing. No evidence of fractures. IMPRESSION: Severe osteoarthrosis changes of the left knee.
== END | disposition home or self-care (01) ==
LOC: RADCTMAIN 12:18
PROVIDERS: ATTEND Orthopaedic Surgery
DX: Z01.818 Encounter for other preprocedural examination (principal); M17.12 Unilateral primary osteoarthritis, left knee

== ENCOUNTER → 2023-12-02 | Outpatient (CLI) | payer BC ==
[2023-12-02 12:36] LABS: HCT 45.8 % (34.0-46.0); HGB 14.4 gm/dL (11.4-16.0); MCH 28.4 pg (25.0-35.0); MCHC 31.4 g/dL (31.0-37.0); MCV 90.5 fL (80.0-100.0); Platelet Count 221 k/uL (150-450); RBC 5.06 m/uL (3.80-5.40); RDW 12.6 % (11.5-15.5); WBC 5.5 k/uL (3.8-10.6)
[2023-12-02 15:08] LABS: ALT 20 U/L (8-44); AST 30 U/L (13-35); Albumin 4.7 g/dL (3.8-4.9); Albumin/Globulin Ratio 1.57 Ratio (1.60-3.17); Alkaline Phosphatase 130 U/L (41-126); Blood Urea Nitrogen 13.3 mg/dL (9.0-27.0); Calcium 9.7 mg/dL (8.7-10.3); Carbon Dioxide 22.8 mmol/L (21.6-31.8); Chloride 101 mmol/L (96-109); Glucose 99 mg/dL (70-110); Potassium 3.9 mmol/L (3.5-5.5); Sodium 141 mmol/L (135-145); Total Bilirubin 0.9 mg/dL (0.3-1.2); Total Protein 7.7 g/dL (6.2-8.2)
[2023-12-02 15:29] LABS: INR 0.95 sec (0.93-1.11); Prothrombin Time 10.3 sec (9.9-11.9)
== END | disposition home or self-care (01) ==
LOC: LABPAT 10:42
PROVIDERS: ATTEND Family Medicine
DX: Z01.812 Encounter for preprocedural laboratory examination (principal); M17.12 Unilateral primary osteoarthritis, left knee
CPT/HCPCS: 80053; 83036; 85027; 85610

== ENCOUNTER → 2024-11-10 | Outpatient (CLI) | payer BC ==
--- NOTE | 2024-11-10 15:17 | MM ---
Reason for Exam: Screening (asymptomatic). Last mammogram was performed 1 year(s) and 2 month(s) ago. Patient History: Menarche at age 9. First Full-Term at age 17. Postmenopausal. Mother had breast cancer, age 50. Risk Values: Thao 5 year model risk: 2.3%. NCI Lifetime model risk: 11.1%. Prior Study Comparison: 06/13/2022 Bilateral MG 3D diag mammo w/cad [facility], [facility]. 04/03/2023 Left MG 3D diag mammo w/cad [facility], [facility]. 09/11/2023 Bilateral MG screening mammo w CAD, [facility]. Tissue Density: There are scattered areas of fibroglandular density. Findings: Analyzed By CAD. Right breast: There is no suspicious group of microcalcifications or new suspicious mass. Stable benign calcification. Left breast: There is no suspicious group of microcalcifications or new suspicious mass. No finding to correlate with palpable abnormality. Stable left upper outer quadrant intramammary lymph node. Overall Assessment: Benign, BI-RAD 2 Management: Screening Mammogram of both breasts in [address] [facility] will attempt to contact patient to return for supplemental views and ultrasound if indicated. Patient should continue monthly self-breast exams. A clinical breast exam by your physician is recommended on an annual basis. This exam should not preclude additional follow-up of suspicious palpable abnormalities. Note on Thao scores and lifetime risk: 1. A Thao score greater than 3% is considered moderate risk. If this is the case, consider specialist referral to assess eligibility for a risk reducing agent. 2. If overall lifetime risk for the development of breast cancer is 20% or higher, the patient may qualify for future screening with alternating mammogram and breast MRI. [facility], , 11/10/2024 3:15 PM. Electronically signed and approved by: Catarino Jackson DO
== END | disposition home or self-care (01) ==
LOC: RADMAMWWP 14:25
PROVIDERS: ATTEND Family Medicine
DX: Z12.31 Encounter for screening mammogram for malignant neoplasm of breast (principal); R92.323 Mammographic fibroglandular density, bilateral breasts; Z78.0 Asymptomatic menopausal state; Z80.3 Family history of malignant neoplasm of breast
CPT/HCPCS: 77067